=== PATIENT | male | born 1930 | race Caucasian/White ===

== ENCOUNTER 2017-06-09 19:23 | Emergency (ER) | payer MEDICARE, MEDICAID ==
[~2017-06-09] VITALS: Ht 170.2 cm; Wt 77.2 kg
[~2017-06-09 19:23] MED LIST: ASP325T PO; ATOR20TA66 PO; Amlodipine Besylate PO; Atorvastatin Calcium PO; LISI1TAB10 PO; LISI1TAB78 PO; LISI20TA PO; LOVA20TA2 PO; MTF500T PO; MTP50T PO; Naproxen PO; PANT40TA2 PO; PRED5TAB PO; RANI300T4 PO; RNT150T PO
--- OUTSIDE RECORDS SUMMARY | 2017-06-09 19:28 | XMS REPORT ---
Author Author GREGORIA DIALLO Organization [employer] Address Unknown Phone Unavailable Care Team Providers Care Windshield Installer Name Role Phone GREGORIA DIALLO CP Unavailable Allergies No Known Allergies Problems Problem Type Condition Code Onset Dates Condition Status Problem Vascular dementia F01.50 Active Problem Hypertension I10 Active Problem Type 2 diabetes mellitus without complication, without long-term current use of insulin E11.9 Active Problem Arthritis M19.90 Active Medications No Known Medications Results No Known Results Summary Purpose [employer] Submission
--- OUTSIDE RECORDS SUMMARY | 2017-06-09 19:29 | XMS REPORT ---
Author Author GREGORIA DIALLO Organization [employer] Address Unknown Phone Unavailable Care Team Providers Care Housing Liaison Name Role Phone GREGORIA DIALLO CP Unavailable Allergies No Known Allergies Problems Problem Type Condition Code Onset Dates Condition Status Problem Hypertension I10 Active Problem Arthritis M19.90 Active Problem Vascular dementia F01.50 Active Assessment Arthritis M19.90 Active Assessment Vascular dementia F01.50 Active Assessment Hypertension I10 Active Medications No Known Medications Procedures Procedure Coding System Code Date DOMICIL/R-HOME VISIT EST PAT CPT-4 58761 Oct 13, 2015 Results No Known Results Summary Purpose [employer] Submission
--- OUTSIDE RECORDS SUMMARY | 2017-06-09 19:29 | XMS REPORT ---
Author Author GREGORIA DIALLO [facility] [employer] Address Unknown Phone Unavailable Care Team Providers Care Mechanical Ordnance Assembler Name Role Phone GREGORIA DIALLO Unavailable Allergies No Known Allergies Problems Problem Type Condition Code Onset Dates Condition Status Problem Vascular dementia F01.50 Active Problem Hypertension I10 Active Problem Type 2 diabetes mellitus without complication, without long-term current use of insulin E11.9 Active Problem Arthritis M19.90 Active Medications No Known Medications Results No Known Results Summary Purpose [employer] Submission
--- OUTSIDE RECORDS SUMMARY | 2017-06-09 19:29 | XMS REPORT ---
Author Author GREGORIA DIALLO Organization [employer] Address Unknown Phone Unavailable Care Team Providers Care Print Line Tailer Name Role Phone GREGORIA DIALLO CP Unavailable Allergies No Known Allergies Problems Problem Type Condition Code Onset Dates Condition Status Problem Unspecified hemorrhoids without mention of complication 455.6 Active Problem Unspecified local infection of skin and subcutaneous tissue 686.9 Active Problem Pain in thoracic spine 724.1 Active Problem Vascular dementia, uncomplicated 290.40 Active Problem Loss of weight 783.21 Active Problem Benign essential hypertension 401.1 Active Problem Abnormality of gait 781.2 Active Problem Dyspepsia and other specified disorders of function of stomach 536.8 Active Problem Chest pain, unspecified 786.50 Active Problem Cervicalgia 723.1 Active Problem Actinic keratosis 702.0 Active Problem Lumbago 724.2 Active Problem Elbow, forearm, and wrist, abrasion or friction burn, without mention of infection 913.0 Active Problem 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
[2017-06-09] MEDS ORDERED: NS IV 500 ML 500 ML IV ONE (19:32)
--- NOTE | 2017-06-09 19:32 | ED Chest Pain ---
General Chief Complaint: Chest Pain Stated Complaint: CHEST PAIN Source: patient, EMS Exam Limitations: clinical condition (dementia) History of Present Illness Time seen by provider: 19:29 Initial Comments Patient comes from the [facility] with complaint of chest pain on deep inspiration according to the CARE TRANSITIONS NURSE who examined him. They called EMS and EMS was on another call and it took approximately 30 minutes to get to him. By the time EMS saw him he was having no chest pain shortness of breath nausea diarrhea diaphoresis numbness or weakness. They gave him aspirin got a normal looking 12-lead brought him here. Patient's unable to give much medical history other than he has no prior coronary history but he does have blood pressure problems. He does not smoke however he occasionally has a drink. Patient is not sure what he was doing at the time that he started having the pain. He's had no cough fevers chills or rash. He is a baseline of dementia Allergies and Home Medications Allergies Coded Allergies: No Known Drug Allergies (Unverified , 06/01/14) Home Medications Aspirin 325 Mg Tab, 325 MG PO DAILY for 30 Days, Ref 0 Prescribed by: DONALD YUSUF on 06/10/14 1123 Buspirone HCl 5 Mg Tablet, #60 (Reported) Famotidine 20 Mg Tablet, #30 (Reported) Lisinopril/Hydrochlorothiazide 1 Tab Tablet, 1 TAB PO DAILY, (Reported) Metformin Hcl 500 Mg Tablet, 500 MG PO BID WITH MEALS, (Reported) Pantoprazole Sodium 40 Mg Tablet.dr, 40 MG PO DAILY, #14 Prescribed by: AYDEN ABDULLAHI on 07/27/16 1312 Ranitidine Hcl 300 Mg Tablet, 300 MG PO HS, (Reported) the patient takes 2 150 mg tabs at HS Tamsulosin HCl 0.4 Mg Cap.er.24h, #30 (Reported) [Amlodipine Besylate] 10 MG TABLET, 10 MG PO DAILY, #30 Prescribed by: DONALD YUSUF on 06/10/14 1123 Review of Systems Constitutional: No chills, No diaphoresis EENTM: No Blurred Vision, No Double Vision Respiratory: Denies Cough, Denies Shortness of Air, Denies SOA With Exertion, Denies SOA at Rest Cardiovascular: See HPI, Denies Chest Pain, Denies Lightheadedness Gastrointestinal: Denies Abdominal Pain, Denies Diarrhea, Denies Nausea Genitourinary: Denies Burning, Denies Discharge Musculoskeletal: No back pain, No joint pain Skin: No pruritus, No rash Psychiatric/Neurological: Denies Headache, Denies Numbness, Denies Paresthesia Past Suuczid-Ehirtu-Ubnien Hx Patient Social History Alcohol Use: Occasionally Uses Recreational Drug Use: No Smoking Status: Never a Smoker Recent Hopitalizations: No Surgeries HX Surgeries: Yes (NECK) Surgeries: Appendectomy Respiratory Hx Respiratory Disorders: No Cardiovascular Hx Cardiac Disorders: Yes (Bradycardia) Cardiac Disorders: High Cholesterol, Hypertension Neurological Hx Neurological Disorders: Yes (CA s/p resection) Neurological Disorders: Dementia Reproductive System Hx Reproductive Disorders: No Genitourinary Hx Genitourinary Disorders: Yes Genitourinary Disorders: Prostate Problems Gastrointestinal Hx Gastrointestinal Disorders: Yes Gastrointestinal Disorders: Gastroesophageal Reflux Musculoskeletal Hx Musculoskeletal Disorders: No Endocrine Hx Endocrine Disorders: Yes Endocrine Disorders: Diabetes, Non-Insulin dep HEENT HX ENT Disorders: No Cancer Hx Cancer: Yes Cancer: Prostate Psychosocial Hx Psychiatric Problems: No Integumentary HX Skin/Integumentary Disorder: No Blood Transfusions Hx Blood Disorders: No Family Medical History Significant Family History: No Pertinent Family Hx Family Medial History: Patient reports no known family medical history. Physical Exam Vital Signs Vital Sign - Last 12Hours 06/09/17 06/09/17 19:30 19:34 Temp 98.4 Pulse 54 Resp 14 B/P (MAP) 169/89 Pulse Ox 99 O2 Delivery Nasal Cannula O2 Flow Rate 2.00 Capillary Refill : General Appearance: No Apparent Distress, WD/WN HEENT: PERRL/EOMI, Pharynx Normal Neck: Full Range of Motion, Supple Respiratory: Chest Non Tender, Lungs Clear, Normal Breath Sounds Cardiovascular: Regular Rate, Rhythm, No Edema, No Murmur, Normal Peripheral Pulses Gastrointestinal: Normal Bowel Sounds, Non Tender, Soft Neurologic/Psychiatric: Alert, Other (oriented to self and location but not time) Skin: Normal Color, Warm/Dry Lymphatic: No Adenopathy Progress/Results/Core Measures Results/Orders Lab Results Laboratory Tests Test 06/09/17 19:25 06/09/17 20:49 06/09/17 21:35 Range/Units White Blood Count 6.3 4.3-11.0 10^3/uL Red Blood Count 4.42 4.35-5.85 10^6/uL Hemoglobin 13.4 13.3-17.7 G/DL Hematocrit 39 L 40-54 % Mean Corpuscular Volume 87 80-99 FL Mean Corpuscular Hemoglobin 30 25-34 PG Mean Corpuscular Hemoglobin Concent 35 32-36 G/DL Red Cell Distribution Width 13.4 10.0-14.5 % Platelet Count 151 130-400 10^3/uL Mean Platelet Volume 9.9 7.4-10.4 FL Neutrophils (%) (Auto) 50 42-75 % Lymphocytes (%) (Auto) 32 12-44 % Monocytes (%) (Auto) 13 H 0-12 % Eosinophils (%) (Auto) 4 0-10 % Basophils (%) (Auto) 0 0-10 % Neutrophils # (Auto) 3.2 1.8-7.8 X 10^3 Lymphocytes # (Auto) 2.0 1.0-4.0 X 10^3 Monocytes # (Auto) 0.8 0.0-1.0 X 10^3 Eosinophils # (Auto) 0.2 0.0-0.3 10^3/uL Basophils # (Auto) 0.0 0.0-0.1 10^3/uL Prothrombin Time 12.4 12.2-14.7 SEC INR Comment 1.0 0.8-1.4 Activated Partial Thromboplast Time 25 24-35 SEC Sodium Level 134 L 135-145 MMOL/L Potassium Level 3.7 3.6-5.0 MMOL/L Chloride Level 98 98-107 MMOL/L Carbon Dioxide Level 25 21-32 MMOL/L Anion Gap 11 5-14 MMOL/L Blood Urea Nitrogen 16 7-18 MG/DL Creatinine 0.88 0.60-1.30 MG/DL Estimat Glomerular Filtration Rate > 60 BUN/Creatinine Ratio 18 Glucose Level 135 H 70-105 MG/DL Calcium Level 9.5 8.5-10.1 MG/DL Magnesium Level 1.8 1.8-2.4 MG/DL Total Bilirubin 0.3 0.1-1.0 MG/DL Aspartate Amino Transf (AST/SGOT) 18 5-34 U/L Alanine Aminotransferase (ALT/SGPT) 21 0-55 U/L Alkaline Phosphatase 66 40-136 U/L Myoglobin 43.0 10.0-92.0 NG/ML Troponin I < 0.30 < 0.30 <0.30 NG/ML B-Type Natriuretic Peptide 43.7 <100.0 PG/ML Total Protein 7.1 6.4-8.2 GM/DL Albumin 4.0 3.2-4.5 GM/DL Urine Color YELLOW Urine Clarity CLEAR Urine pH 6.5 5-9 Urine Specific [place] 1.015 L 1.016-1.022 Urine Protein NEGATIVE NEGATIVE Urine Glucose (UA) NEGATIVE NEGATIVE Urine Ketones NEGATIVE NEGATIVE Urine Nitrite NEGATIVE NEGATIVE Urine Bilirubin NEGATIVE NEGATIVE Urine Urobilinogen NORMAL NORMAL MG/DL Urine Leukocyte Esterase NEGATIVE NEGATIVE Urine RBC (Auto) 2+ H NEGATIVE Urine RBC 2-5 H /HPF Urine WBC NONE /HPF Urine Crystals NONE /LPF Urine Bacteria NONE /HPF Urine Casts NONE /LPF Urine Mucus NEGATIVE /LPF Urine Culture Indicated NO My Orders Orders - ESA RHODES Cbc With Automated Diff (06/09/17 19:32) Magnesium (06/09/17 19:32) Ekg Tracing (06/09/17:32) Cardiac Profile 1 (06/09/17:32) Comprehensive Metabolic Panel (06/09/17 19:32) Myoglobin Serum (06/09/17 19:32) Protime With Inr (06/09/17:32) Partial Thromboplastin Time (06/09/17:32) O2 (06/09/17:32) Monitor-Rhythm Ecg Trace Only (06/09/17 19:32) Saline Lock/Iv-Start (06/09/17 19:32) BNP (06/09/17 19:32) Ua Culture If Indicated (06/09/17 19:32) Chest Pa/Lat (2 View) (06/09/17 19:32) Saline Lock/Iv-Start (06/09/17 19:32) Ns Iv 500 Ml (Sodium Chloride 0.9%) (06/09/17 19:32) Troponin I (06/09/17 21:24) Medications Given in ED Current Medications Medications Dose Ordered Sig/Ana Rosa Route Start Time Stop Time Status Last Admin Dose Admin Sodium Chloride 500 ml @ 0 mls/hr Q0M ONCE IV 06/09/17 19:32 06/09/17 19:35 DC 06/09/17 19:42 0 MLS/HR Vital Signs/I&O Vital Sign - Last 12Hours 06/09/17 06/09/17 06/09/17 06/09/17 19:30 19:34 19:34 23:01 Temp 98.4 98.4 Pulse 54 48 Resp 14 14 B/P (MAP) 169/89 Pulse Ox 99 99 94 O2 Delivery Nasal Cannula Nasal Cannula Nasal Cannula Room Air O2 Flow Rate 2.00 2.0 2.0 2.0 Intake and Output 06/10/17 00:00 Intake Total 500 ml Balance 500 ml Progress Note : Time: 21:23 Progress Note Patient does have dementia but does not have any acute complaints at this time. His chest pain appears to resolve and does not an acute STEMI or instantly. We will go ahead and repeat a delta two-hour troponin now and if it is normal we' ll allow him to go home to follow up tomorrow with his PCP. ECG Initial ECG Impression Date: Jun 09, 2017 Initial ECG Impression Time: 19:27 Initial ECG Rate: 55 Initial ECG Rhythm: S.Jason Initial ECG Intervals: Normal Initial ECG Impression: Nonspecific Changes Initial ECG Comparisson: No Previous ECG Available Comment No ST-T wave elevation or depression. Diagnostic Imaging Diagonstic Imaging: Xray Plain Films/CT/US/NM/MRI: chest Comments VIA [facility]. [place], [place] NAME: PETTY MARCIAL [facility] REC#: [id number] PT STATUS: REG ER : 1930 PHYSICIAN: ESA RHODES MD ADMIT DATE: 06/09/17/ER Draft Date of Exam:06/09/17 CHEST PA/LAT (2 VIEW) INDICATION: Chest pain COMPARISON: 07/27/2016 FINDINGS: Frontal and lateral views of the chest demonstrate normal heart size and pulmonary vascularity. The lungs are clear. There are no signs of infiltrate, pleural effusions or pneumothoraces. The visualized osseous structures show no acute abnormalities. There is aortic atherosclerosis. IMPRESSION: 1. No acute process. No signs of infiltrates, effusions or pneumothoraces. Dictated on workstation # [id number] Dict: 06/09/172058 Trans: 06/09/172101 ARCENIO [id number] Interpreted by: OMAR BALES Electronically signed by: Reviewed: Reviewed by Me Departure Impression Impression: Primary Impression: Chest pain Qualified Codes: R07.89 - Other chest pain Disposition: 01 HOME, SELF-CARE Condition: Stable Departure-Patient Inst. Decision time for Depature: 22:51 Referrals: GREGORIA DIALLO MD (PCP/Family) Primary Care Physician Patient Instructions: Chest Pain That Is Not Caused by the Heart (DC) Add. Discharge Instructions: Tomorrow morning call your physician's office at [phone] and get an appointment within the next week to be seen in follow-up for your chest pain workup outpatient. If you're having any new or worsening symptoms such as repeat chest pain nausea vomiting fevers chills or numbness or weakness she should return to the ER. All discharge instructions reviewed with patient and/or family. Voiced understanding. Copy Copies To 1: GREGORIA DIALLO MD, TITUS J Jun 09, 2017 19:32
[2017-06-09] MEDS ORDERED: BUSP5TAB59 (19:33)
[2017-06-09] MEDS ORDERED: TAMS0.4C2 (19:33)
[2017-06-09] MEDS ORDERED: FAMO20TA5 (19:33)
[2017-06-09 19:43] LABS: BASOPHILS % (AUTO) 0 % (0-10); EOSINOPHILS # (AUTO) 0.2 10^3/uL (0.0-0.3); EOSINOPHILS % (AUTO) 4 % (0-10); LYMPHOCYTES % (AUTO) 32 % (12-44); MEAN CORPUSCULAR HEMOGLOBIN 30 PG (25-34); MEAN CORPUSCULAR HGB CONC 35 G/DL (32-36); MEAN CORPUSCULAR VOLUME 87 FL (80-99); MEAN PLATELET VOLUME 9.9 FL (7.4-10.4); MONOCYTES # (AUTO) 0.8 X 10^3 (0.0-1.0); MONOCYTES % (AUTO) 13 % (0-12); NEUTROPHILS # (AUTO) 3.2 X 10^3 (1.8-7.8); NEUTROPHILS % (AUTO) 50 % (42-75); PLATELET COUNT 151 10^3/uL (130-400); RED BLOOD COUNT 4.42 10^6/uL (4.35-5.85); RED CELL DISTRIBUTION WIDTH 13.4 % (10.0-14.5); WHITE BLOOD COUNT 6.3 10^3/uL (4.3-11.0)
[2017-06-09 19:53] LABS: PROTHROMBIN TIME PATIENT 12.4 SEC (12.2-14.7)
[2017-06-09 20:10] LABS: ALANINE AMINOTRANSFERASE 21 U/L (0-55); ANION GAP 11 MMOL/L (5-14); ASPARTATE AMINO TRANSFERASE 18 U/L (5-34); BILIRUBIN,TOTAL 0.3 MG/DL (0.1-1.0); BLOOD UREA NITROGEN 16 MG/DL (7-18); BUN/CREATININE RATIO 18; CALCIUM 9.5 MG/DL (8.5-10.1); CARBON DIOXIDE 25 MMOL/L (21-32); CHLORIDE 98 MMOL/L (98-107); CREATININE SERUM 0.88 MG/DL (0.60-1.30); GFR ESTIMATED > 60; GLUCOSE 135 MG/DL (70-105); MAGNESIUM 1.8 MG/DL (1.8-2.4); POTASSIUM 3.7 MMOL/L (3.6-5.0); SODIUM 134 MMOL/L (135-145); TOTAL PROTEIN 7.1 GM/DL (6.4-8.2)
[2017-06-09 21:02] LABS: BILIRUBIN,URINE NEGATIVE (NEGATIVE); KETONES,URINE NEGATIVE (NEGATIVE); LEUKOCYTE ESTERASE ,URINE NEGATIVE (NEGATIVE); NITRITE,URINE NEGATIVE (NEGATIVE); PH,URINE 6.5 (5-9); PROTEIN,URINE NEGATIVE (NEGATIVE); UROBILINOGEN,URINE NORMAL (NORMAL)
--- NOTE | 2017-06-09 21:02 | Diagnostic Imaging Report ---
INDICATION: Chest pain COMPARISON: 07/27/2016 FINDINGS: Frontal and lateral views of the chest demonstrate normal heart size and pulmonary vascularity. The lungs are clear. There are no signs of infiltrate, pleural effusions or pneumothoraces. The visualized osseous structures show no acute abnormalities. There is aortic atherosclerosis. IMPRESSION: 1. No acute process. No signs of infiltrates, effusions or pneumothoraces. Dictated by: Dictated on workstation # [id number]
[2017-06-09 23:01] VITALS: BP 180/67
== END 2017-06-09 22:55 | disposition home or self-care (01) ==
LOC: EDUNIT# 19:23 → ER 19:24
DX: R07.1 Chest pain on breathing (principal); E78.00 Pure hypercholesterolemia, unspecified; I10 Essential (primary) hypertension; F03.90 Unspecified dementia, unspecified severity, without behavioral disturbance, psychotic disturbance, mood disturbance, and anxiety; K21.9 Gastro-esophageal reflux disease without esophagitis; E11.9 Type 2 diabetes mellitus without complications; Z85.46 Personal history of malignant neoplasm of prostate; Z79.82 Long term (current) use of aspirin; Z79.84 Long term (current) use of oral hypoglycemic drugs; Z90.49 Acquired absence of other specified parts of digestive tract
CPT/HCPCS: 36415; 71020; 80053; 81000; 83735; 83874; 83880; 84484; 85025; 85610; 85730; 93005; 93041; 96360

== ENCOUNTER 2018-02-11 14:17 | Outpatient (CLI) | payer MEDICARE, MEDICAID ==
[~2018-02-11] VITALS: Ht 170.2 cm; Wt 72.7 kg
[~2018-02-11 14:17] MED LIST changes: +BUSP5TAB59; +FAMO20TA5; +TAMS0.4C2
[2018-02-11 14:57] LABS: BASOPHILS % (AUTO) 1 % (0-10); EOSINOPHILS # (AUTO) 0.2 10^3/uL (0.0-0.3); EOSINOPHILS % (AUTO) 3 % (0-10); HEMATOCRIT 32 % (40-54); HEMOGLOBIN 11.3 G/DL (13.3-17.7); LYMPHOCYTES # (AUTO) 1.3 X 10^3 (1.0-4.0); LYMPHOCYTES % (AUTO) 18 % (12-44); MEAN CORPUSCULAR HEMOGLOBIN 32 PG (25-34); MEAN CORPUSCULAR HGB CONC 35 G/DL (32-36); MEAN CORPUSCULAR VOLUME 91 FL (80-99); MONOCYTES # (AUTO) 0.9 X 10^3 (0.0-1.0); MONOCYTES % (AUTO) 12 % (0-12); NEUTROPHILS # (AUTO) 4.7 X 10^3 (1.8-7.8); NEUTROPHILS % (AUTO) 65 % (42-75); PLATELET COUNT 218 10^3/uL (130-400); RED BLOOD COUNT 3.54 10^6/uL (4.35-5.85); RED CELL DISTRIBUTION WIDTH 12.6 % (10.0-14.5); WHITE BLOOD COUNT 7.2 10^3/uL (4.3-11.0)
[2018-02-11] MEDS ORDERED: ESCI10TA PO (14:59)
[2018-02-11] MEDS ORDERED: ACET325T49 PO (14:59)
[2018-02-11] MEDS ORDERED: TAMS0.4C98 PO (14:59)
[2018-02-11] MEDS ORDERED: MELA10TA2 PO (14:59)
[2018-02-11] MEDS ORDERED: FAMO-119 PO (14:59)
[2018-02-11] MEDS ORDERED: DEXT1DRO7 OP (14:59)
[2018-02-11] MEDS ORDERED: BUSP10TA95 PO (14:59)
[2018-02-11] MEDS ORDERED: LISI1TAB10 PO (14:59)
[2018-02-11] MEDS ORDERED: AMLO5TAB2 PO (14:59)
[2018-02-11] MEDS ORDERED: ACID1TAB PO (14:59)
[2018-02-11] MEDS ORDERED: NAPR-1071 PO (14:59)
[2018-02-11 15:16] LABS: CALCIUM 9.6 MG/DL (8.5-10.1); CREATININE SERUM 1.38 MG/DL (0.60-1.30); POTASSIUM 3.3 MMOL/L (3.6-5.0)
== END 2018-02-11 15:30 | disposition home or self-care (01) ==
LOC: PREOP 14:17
PROVIDERS: ATTEND Otolaryngology Otolaryngology/Facial Plastic Surgery
DX: Z01.812 Encounter for preprocedural laboratory examination (principal); Z11.2 Encounter for screening for other bacterial diseases; L98.9 Disorder of the skin and subcutaneous tissue, unspecified
CPT/HCPCS: 36415; 80048; 85025; 87081

== ENCOUNTER 2018-02-14 07:59 | Day surgery (SDC) | payer MEDICARE, MEDICAID ==
[~2018-02-14] VITALS: Ht 170.2 cm; Wt 72.7 kg
[~2018-02-14 07:59] MED LIST changes: +ACET325T49 PO; +ACID1TAB PO; +AMLO5TAB2 PO; +BUSP10TA95 PO; +DEXT1DRO7 OP; +ESCI10TA PO; +FAMO-119 PO; +MELA10TA2 PO; +NAPR-1071 PO; +TAMS0.4C98 PO
--- OUTSIDE RECORDS SUMMARY | 2018-02-14 08:03 | XMS REPORT ---
Author Author MAKEDA SANCHES [facility] Address [address] [place] [address] Care Team Providers Care [employer] Assistant Manager Name Role Phone MAKEDA SANCHES Unavailable PROBLEMS Type Condition ICD9-CM Code ZTU31-QH Code Onset Dates Condition Status SNOMED Code Problem Benign prostatic hyperplasia with lower urinary tract symptoms, unspecified morphology N40.1 Active 019007043 Problem Pure hypercholesterolemia E78.00 Active 775615003 Problem Gastroesophageal reflux disease, esophagitis presence not specified K21.9 Active 518105845 Problem Basal cell carcinoma C44.91 Active 858547217 Problem Arthritis M19.90 Active 6197199 Problem Vascular dementia F01.50 Active 728389719 Problem Type 2 diabetes mellitus without complication, without long-term current use of insulin E11.9 Active 318023378 Problem Hypertension I10 Active 90634653 ALLERGIES No Information SOCIAL HISTORY Never Assessed PLAN OF CARE VITAL SIGNS MEDICATIONS Unknown Medications RESULTS No Results PROCEDURES No Known procedures IMMUNIZATIONS No Known Immunizations MEDICAL (GENERAL) HISTORY Type Description Date Medical History hypertension Surgical History states multiple but cant tell me what
--- OUTSIDE RECORDS SUMMARY | 2018-02-14 08:03 | XMS REPORT ---
Author Author MAKEDA SANCHES [facility] Address [address] [place] [address] Care Team Providers Care Firearms Sales Associate Name Role Phone MAKEDA SANCHES Unavailable PROBLEMS Type Condition ICD9-CM Code VSF47-UK Code Onset Dates Condition Status SNOMED Code Problem Vascular dementia F01.50 Active 269453899 Problem Gastroesophageal reflux disease, esophagitis presence not specified K21.9 Active 347046682 Problem Type 2 diabetes mellitus without complication, without long-term current use of insulin E11.9 Active 787711150 Problem Pure hypercholesterolemia E78.00 Active 277850889 Problem Benign prostatic hyperplasia with lower urinary tract symptoms, unspecified morphology N40.1 Active 855027604 Problem Arthritis M19.90 Active 0121685 Problem Hypertension I10 Active 50541846 Problem Dementia in other diseases classified elsewhere without behavioral disturbance F02.80 Active 241823092 Problem Major depressive disorder, single episode, unspecified F32.9 Active 35837725 Problem Unsteady gait R26.81 Active 14013580 Problem Basal cell carcinoma C44.91 Active 336858437 Problem 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 [address] [id number][place] [id number] Oct, [facility] [address] [place] [id number] Oct, Dry skin L85.3 and History of basal cell carcinoma Z85.828 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 [address] [id number][place] [id number] Jul, [facility] [address] [place] [address] Jul, Vascular dementia F01.50 [facility] [address] [id number][place] [id number] Jun, [facility] [address] [place] [address] May, Other chest pain R07.[address] [facility] [address] [place] [address] Mar, Vascular dementia F01.50 [facility] [address] [place] [address] Dec, Type 2 diabetes mellitus without complication, without long-term current use of insulin E11.9 and Vascular dementia F01.50 [facility] [id number] [place] [address] Nov, [facility] [address] [place] [address] Sep, Vascular dementia F01.50 ; Gastroesophageal reflux disease, esophagitis presence not specified K21.9 and Basal cell carcinoma C44.91 [facility] [id number] [place] [address] Aug, [facility] [address] [place] [address] Jul, Type 2 diabetes mellitus without complication, without long-term current use of insulin E11.9 and Hypertension I10 [facility] [id number] [place] [address] May, [facility] [address] [place] [address] May, Type 2 diabetes mellitus without complication, without long-term current use of insulin E11.9 ; Hypertension I10 and Vascular dementia F01.50 [facility] [address] [id number], [place] [address] Apr, [facility] [id number] [place] [address] February, Hypertension I10 and Arthritis M19.90 [facility] [id number] [place] [address] Dec, Hypertension I10 [facility] [id number] [place] [address] Sep, Vascular dementia F01.50 ; Hypertension I10 and Arthritis M19.90 [facility] [address], [place] [address] 09 Jul, 2015 [facility] [id number] [place] [address] 15 Jun, 2015 Impacted cerumen of both ears 380.4 ; Benign essential hypertension 401.1 and Diabetes mellitus without mention of complication, type II or unspecified type, uncontrolled 250.02 [facility] [id number] [place] [address] 17 May, 2015 [facility] [id number] [place] [address] Jan, [facility] [id number] [place] [address] Jan, [facility] [id number] [place] [address] Dec, [facility] [id number] [place] [address]- [address] 19 Dec, 2014 [facility] [address], [place] [address] 16 Dec, 2014 [facility] [address], [place] [address] 16 Dec, 2014 [facility] [address], [place] [address] Dec, [facility] [address], [place] [address] Dec, [facility] [address], [place] [address] Dec, [facility] [address] Dec, [facility] [address], [place] [address] 18 Nov, 2014 [facility] [address] [id number] [place] [address] Nov, [facility] [address] [id number] [place] [address] Nov, [facility] [address] [id number] [place] [address] Sep, [facility] [address] [id number] [place] [address] Sep, [facility] [address] [id number] [place] [address] Aug, [facility] [address] [id number] [place] [address] Aug, [facility] [address] [id number] [place] [address] Aug, [facility] [address] [id number] [place] [address] Aug, [facility] [address] [id number] [place] [address] Jul, [facility] [address] [id number] [place] [address] Jul, [facility] [address] [id number] [place] [address] Jul, [facility] [address] [id number] [place] [address] Jul, [facility] [address] [id number], [place] [address] Jul, [facility] [address] [id number] [place] [address] Jul, [facility] [address] [place] [id number] Jun, [facility] [address] [id number], [place] [address] Jun, [facility] [place] [facility] [address] [id number] [place] [address] May, [facility] [place] [facility] [address] [id number] [place] [address]- 5[address] May, [facility] [place] [facility] [address] [id number] [place] [address]- [address] May, [facility] [place] [facility] [address] [id number] [place] [address]- [address] May, [facility] [place] [facility] [address] [id number] [place] [address]- 0[address] May, [facility] [place] [facility] [address] [id number] [place] [address]- 7[address] May, [facility] [place] [facility] [address] [id number] [place] [address]- 3360 May, [facility] [place] [facility] [address] [id number] [place] [address]- [address] May, [facility] [place] [facility] [address] [id number] [facility] [place] [address] May, [facility] [place] [facility] [address] [id number] [place] [address]- [address] May, [facility] [place] [facility] [address] [id number] [place] [address] May, [facility] [place] [facility] [address] [id number] [place] [address]- 60[address] Apr, [facility] [place] [facility] [address] [id number] [place] [address]- [address] Apr, [facility] [place] [facility] [address] [id number] [place] [address]- 2400 Apr, [facility] [place] [facility] [address] [id number] [place] [address]- 6070 Apr, [facility] [place] [facility] [address] [id number] [place] [address]- 4[address] Apr, [facility] [place] [facility] [address] [id number] [place] [address]- 8879 Apr, [facility] [place] [facility] [address] [id number] [place] [address]- [address] Mar, [facility] [place] [facility] [address] [id number] [place] [address]- 2935 Mar, [facility] [place] [facility] [address] [id number] [place] [address]- 2794 Mar, [facility] [place] [facility] [address] [id number] [place] [address]- 2119 Mar, [facility] [place] [facility] [address] [id number] [place] [address]- 6[address] Jan, [facility] [place] [facility] [address] [id number] [place] [address]- 9481 Jan, [facility] [place] [facility] [address] [id number] [place] [address]- 4605 Jan, [facility] [place] [facility] [address] [id number] [place] [address]- 0106 Jan, [facility] [place] [facility] [address] [id number] [place] [address]- 8893 Jan, [facility] [place] [facility] [address] [id number] [place] [address]- 06[address] Jan, [facility] [place] [facility] [address] [id number] [place] [address]- 0590 Jan, [facility] [place] [facility] [address] [id number] [place] [address]- 7104 Dec, [facility] [place] [facility] [address] [id number] [place] [address]- [address]103 Dec, [facility] [place] [facility] [address] [id number] [place] [address] Dec, [facility] [place] [facility] [address] [id number] [place] [address]- 2658 17 Dec, 2013 [facility] [place] [facility] [address] [id number] [place] [address]- 4283 17 Dec, 2013 [facility] [place] [facility] [address] [id number] [place] [address]- 4366 17 Dec, 2013 [facility] [place] [facility] [address] [id number] [place] [address]- 5856 17 Dec, 2013 [facility] [place] [facility] [address] [id number] [place] [address]- 0132 10 Dec, 2013 [facility] [place] [facility] [address] [id number] [place] [address]- 0869 10 Dec, 2013 [facility] [place] [facility] [address] [id number] [place] [address]- 1326 Oct, [facility] [place] [facility] [address] [id number] [place] [address]- 1757 Oct, [facility] [place] [facility] [address] [id number] [place] [address]- 7542 Oct, [facility] [place] [facility] [address] [id number] [place] [address]- 3009 Oct, [facility] [place] [facility] [address] [id number] [place] [address]- 9236 Aug, [facility] [place] [facility] [address] [id number] [place] [address]- 5923 Aug, [facility] [place] [facility] [address] [id number] [place] [address]- 1476 Jun, [facility] [place] [facility] [address] [id number] [place] [address]- 0031 May, [facility] [place] [facility] [address] [id number] [place] [address]- 7263 May, [facility] [place] [facility] [address] [id number] [place] [address]- 9123 May, [facility] [place] [facility] [address] [id number] [place] [address]- 6753 Apr, [facility] [address] [id number] [place] [address]- 6[address] Apr, [facility] [address] [id number] [place] [address]- 65[address] February, [facility] [address] [id number] [place] [address]- 8938 February, [facility] [address] [id number] [place] [address]- 7805 February, [facility] [address] [id number] [place] [address]- 3978 Jan, [facility] [address] [id number] [place] [address]- 2405 Jan, [facility] [address] [id number] [place] [address]- 6272 Jan, [facility] [address] [id number] [place] [address]- 9934 Jan, [facility] [address] [id number] [place] [address]- 0566 Jun, [facility] [address] [id number] [place] [address]- 1166 February, [facility] [address] [id number] [place] [address]- 9652 February, [facility] [address] [id number] [place] [address]- 7751 Jan, [facility] [address] [id number] [place] [address]- 3702 Jan, [facility] [address] [id number] [place] [address]- 1121 Jan, [facility] [address] [id number] [place] [address]- 2546 Dec, [facility] [address] [facility] [id number] [place] [address]- 2546 Nov, [facility] [address] [facility] [id number] [place] [address]- 2546 Aug, IMMUNIZATIONS No Known Immunizations SOCIAL HISTORY Never Assessed REASON FOR VISIT ER follow up PLAN OF CARE Activity Details Follow Up prn Reason: VITAL SIGNS MEDICATIONS No Known Medications RESULTS No Results PROCEDURES Procedure Date Ordered Result Body Site Stable Visit (10 minutes) Jun 13, 2017 INSTRUCTIONS MEDICATIONS ADMINISTERED No Known Medications MEDICAL (GENERAL) HISTORY Type Description Date Medical History hypertension Medical History vascular dementia Medical History basal cell carcinoma Medical History hypercholesterolemia Medical History BPH Medical History fall risk, unsteady gait Medical History GERD Medical History arthritis Surgical History states multiple but not able to provide more information
--- OUTSIDE RECORDS SUMMARY | 2018-02-14 08:04 | XMS REPORT ---
Author Author MAKEDA SANCHES [facility] Address [address] [place] [address] Care Team Providers Care Software Development Intern Name Role Phone MAKEDA SANCHES Unavailable PROBLEMS Type Condition ICD9-CM Code CJK46-LI Code Onset Dates Condition Status SNOMED Code Problem Vascular dementia F01.50 Active 372481311 Problem Gastroesophageal reflux disease, esophagitis presence not specified K21.9 Active 236025159 Problem Type 2 diabetes mellitus without complication, without long-term current use of insulin E11.9 Active 488614892 Problem Pure hypercholesterolemia E78.00 Active 844773194 Problem Benign prostatic hyperplasia with lower urinary tract symptoms, unspecified morphology N40.1 Active 551958317 Problem Arthritis M19.90 Active 4128544 Problem Hypertension I10 Active 06020670 Problem Dementia in other diseases classified elsewhere without behavioral disturbance F02.80 Active 634020594 Problem Major depressive disorder, single episode, unspecified F32.9 Active 27049610 Problem Unsteady gait R26.81 Active 17593049 Problem Basal cell carcinoma C44.91 Active 368461945 Problem 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 Active 615806858 Problem Frequent falls R29.6 Active 201546045 ALLERGIES No Information ENCOUNTERS Encounter Location Date Diagnosis [facility] [address] [facility] [id number], [place] [address] Nov, 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 ; Dementia in other diseases classified elsewhere without behavioral disturbance F02.80 ; Major depressive disorder, single episode, unspecified F32.9 and Vascular dementia F01.50 [facility] [address] [id number] [id number] Oct, [facility] [address] [facility] [id number] [id number] Oct, 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 ; Dementia in other diseases classified elsewhere without behavioral disturbance F02.80 ; Major depressive disorder, single episode, unspecified F32.9 and Vascular dementia F01.50 [facility] [address] [facility] [id number], [place] [address] Oct, [facility] [address] [id number][place] [id number] Oct, [facility] [address] [place] [id number] Oct, Dry skin L85.3 and History of basal cell carcinoma Z85.828 [facility] [address] [id number] [id number] Oct, [facility] [address] [facility] [id number] [address] Sep, Vascular dementia F01.50 ; 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 ; Dementia in other diseases classified elsewhere without behavioral disturbance F02.80 and Major depressive disorder, single episode, unspecified F32.9 [facility] [address] [facility] [id number] [address] Sep, [facility] [address] [place] [id number] Aug, Encounter for examination for admission to alf Z02.2 ; Vascular dementia F01.50 ; Hypertension I10 ; Type 2 diabetes mellitus without complication, without long-term current use of insulin E11.9 ; Frequent falls R29.6 and Unsteady gait R26.81 [facility] [address] [id number][place] [id number] Jul, [facility] [address] [place] [address] Jul, Vascular dementia F01.50 [facility] [address] [id number][place] [id number] Jun, [facility] [address] [place] [address] May, Other chest pain R07.89 [facility] [address] [place] [address] Mar, Vascular dementia F01.50 [facility] [address] [place] [address] Dec, Type 2 diabetes mellitus without complication, without long-term current use of insulin E11.9 and Vascular dementia F01.50 [facility] [id number] [place] [address] Nov, [facility] [address] [place] [address] Sep, Vascular dementia F01.50 ; Gastroesophageal reflux disease, esophagitis presence not specified K21.9 and Basal cell carcinoma C44.91 [facility] [id number] [place] [address] Aug, [facility] [address] [place] [address] Jul, Type 2 diabetes mellitus without complication, without long-term current use of insulin E11.9 and Hypertension I10 [facility] [id number] [place] [address] May, [facility] [address] [place] [address] May, Type 2 diabetes mellitus without complication, without long-term current use of insulin E11.9 ; Hypertension I10 and Vascular dementia F01.50 [facility] [address] [id number], [place] [address] Apr, [facility] [id number] [place] [address] February, Hypertension I10 and Arthritis M19.90 [facility] [id number] [place] [address] Dec, Hypertension I10 [facility] [id number] [place] [address] Sep, Vascular dementia F01.50 ; Hypertension I10 and Arthritis M19.90 [facility] [address], [place] [address] 09 Jul, 2015 [facility] [id number] [place] [address] 15 Jun, 2015 Impacted cerumen of both ears 380.4 ; Benign essential hypertension 401.1 and Diabetes mellitus without mention of complication, type II or unspecified type, uncontrolled 250.02 [facility] [id number] [place] [address] 17 May, 2015 [facility] [id number] [place] [address] Jan, [facility] [id number] [place] [address] Jan, [facility] [id number] [place] [address] Dec, [facility] [address] [place] [address] 19 Dec, 2014 [facility] [address], [place] [address] 16 Dec, 2014 [facility] [address], [place] [address] 16 Dec, 2014 [facility] [address], [place] [address] Dec, [facility] [address], [place] [address] Dec, [facility] [address], [place] [address] Dec, [facility] [address] Dec, [facility] [address], [place] [address] 18 Nov, 2014 [facility] [address] [facility] [place] [place] [address] Nov, [facility] [address] [id number] [place] [address] Nov, [facility] [address] [id number] [place] [address] Sep, [facility] [address] [id number] [place] [address] Sep, [facility] [address] [id number] [place] [address] Aug, [facility] [address] [id number] [place] [address] Aug, [facility] [address] [id number] [place] [address] Aug, [facility] [address] [id number] [place] [address] Aug, [facility] [address] [id number] [place] [address] Jul, [facility] [address] [id number] [place] [address] Jul, [facility] [address] [id number] [place] [address] Jul, [facility] [address] [id number] [place] [address] Jul, [facility] [address] [id number], [place] [address] Jul, [facility] [address] [id number] [place] [address] Jul, [facility] [address] [place] [id number] Jun, [facility] [address] [id number], [place] [address] Jun, [facility] [place] [facility] [address] [id number] [place] [address] 8[address] May, [facility] [place] [facility] [address] [id number] [place] [address] May, [facility] [place] [facility] [address] [id number] [place] [address] 9[address] May, [facility] [place] [facility] [address] [id number] [place] [address] 8[address] May, [facility] [place] [facility] [address] [id number] [place] [address]- 2587 May, [facility] [place] [facility] [address] [id number] [place] [address] 2924 May, [facility] [place] [facility] [address] [id number] [place] [address]- 74[address] May, [facility] [place] [facility] [address] [id number] [place] [address]- [address] May, [facility] [place] [facility] [address] [id number] [place] [address]- 95[address] May, [facility] [place] [facility] [address] [id number] [place] [address]- 9849 May, [facility] [place] [facility] [address] [id number] [place] [address]- 6277 May, [facility] [place] [facility] [address] [id number] [place] [address]- 7171 Apr, [facility] [place] [facility] [address] [id number] [place] [address]- 2650 Apr, [facility] [place] [facility] [address] [id number] [place] [address]- 0591 Apr, [facility] [place] [facility] [address] [id number] [place] [address]- [address] Apr, [facility] [place] [facility] [address] [id number] [place] [address]- 2816 Apr, [facility] [place] [facility] [address] [id number] [place] [address]- 9836 Apr, [facility] [place] [facility] [address] [id number] [place] [address]- 136[address] Mar, [facility] [place] [facility] [address] [id number] [place] [address]- 0099 Mar, [facility] [place] [facility] [address] [id number] [place] [address]- 9163 Mar, [facility] [place] [facility] [address] [id number] [place] [address]- [address]30 Mar, [facility] [place] [facility] [address] [id number] [place] [address]- 6309 Jan, [facility] [place] [facility] [address] [id number] [place] [address]- 7443 Jan, [facility] [place] [facility] [address] [id number] [place] [address]- 5316 Jan, [facility] [place] [facility] [address] [id number] [place] [address]- 5857 Jan, [facility] [place] [facility] [address] [id number] [place] [address]- 2677 Jan, [facility] [place] [facility] [address] [id number] [place] [address]- 0698 Jan, [facility] [place] [facility] [address] [id number] [place] [address]- 0115 Jan, [facility] [place] [facility] [address] [id number] [place] [address]- 2460 Dec, [facility] [place] [facility] [address] [id number] [place] [address]- 8427 Dec, [facility] [place] [facility] [address] [id number] [place] [address] Dec, [facility] [place] [facility] [address] [id number] [place] [address]- 6479 17 Dec, 2013 [facility] [place] [facility] [address] [id number] [place] [address]- 8499 17 Dec, 2013 [facility] [place] [facility] [address] [id number] [place] [address]- 7006 17 Dec, 2013 [facility] [place] [facility] [address] [id number] [place] [address]- 6126 17 Dec, 2013 [facility] [place] [facility] [address] [id number] [place] [address]- 9983 10 Dec, 2013 [facility] [place] [facility] [address] [id number] [place] [address]- 9021 10 Dec, 2013 [facility] [place] [facility] [address] [id number] [place] [address]- 3639 Oct, [facility] [place] [facility] [address] [id number] [place] [address]- 9023 Oct, [facility] [place] [facility] [address] [id number] [place] [address]- 4759 Oct, [facility] [place] [facility] [address] [id number] [place] [address]- 8224 Oct, [facility] [place] [facility] [address] [id number] [place] [address]- 9107 Aug, [facility] [place] [facility] [address] [id number] [place] [address]- 8146 Aug, [facility] [place] [facility] [address] [id number] [place] [address]- 6264 Jun, [facility] [place] [facility] [address] [id number] [place] [address]- 7854 May, [facility] [place] [facility] [address] [id number] [place] [address]- 6918 May, [facility] [place] [facility] [address] [id number] [place] [address]- 8189 May, [facility] [place] [facility] [address] [id number] [place] [address]- 1720 Apr, [facility] [address] [id number] [place] [address]- 4698 Apr, [facility] [address] [id number] [place] [address]- 1020 February, [facility] [address] [id number] [place] [address]- 3432 February, [facility] [address] [id number] [place] [address]- 1791 February, [facility] [address] [id number] [place] [address]- 1267 Jan, [facility] [address] [id number] [place] [address]- 6994 Jan, [facility] [address] [id number] [place] [address]- 1870 Jan, [facility] [address] [id number] [place] [address]- 4738 Jan, [facility] [address] [id number] [place] [address]- 8550 Jun, [facility] [address] [id number] [place] [address]- 5988 February, [facility] [address] [id number] [place] [address]- 1231 February, [facility] [address] [id number] [place] [address]- 6776 Jan, [facility] [address] [id number] [place] [address]- 6241 Jan, [facility] [address] [id number] [place] [address]- 4025 Jan, [facility] [address] [id number] [place] [address]- 2546 Dec, [facility] [address] [facility] [id number] [place] [address]- 2546 Nov, [facility] [address] [facility] [id number], [place] [address] Aug, IMMUNIZATIONS No Known Immunizations SOCIAL HISTORY Never Assessed REASON FOR VISIT Routine Visit PLAN OF CARE Activity Details Follow Up prn Reason: VITAL SIGNS MEDICATIONS Medication Instructions Dosage Frequency Start Date End Date Duration Status Zantac 300 MG Orally Once a day 1 tablet at bedtime 24h Active Imodium A-D 2 MG Orally every 8 hours as needed 1 tablet Active Flomax 0.4 MG Orally 2 times a day (0800 & 1700) 1 capsule Active Naprosyn 250 MG Orally Once a day as needed for pain 1 tablet Active Pantoprazole Sodium 40 MG TAKE 1 TABLET BY MOUTH 30 MINUTES BEFORE DINNER, STOP THE ZANTAC 30 Active Lisinopril-Hydrochlorothiazide 20-25 MG TAKE ONE TABLET BY MOUTH EVERY DAY 30 Active Amlodipine Besylate 5 MG TAKE 1 TABLET BY MOUTH DAILY 30 Active Aspirin 325 mg Orally Once a day 1 tablet 24h 04 Mar, 2014 Active BusPIRone HCl 5 MG TAKE 1 TABLET BY MOUTH TWICE DAILY 30 Active Melatonin 5 mg Orally Once a day at HS 1 tablet at bedtime as needed with food 30 Active RESULTS No Results PROCEDURES Procedure Date Ordered Result Body Site Stable Visit (10 minutes) April 16, 2017 INSTRUCTIONS MEDICATIONS ADMINISTERED No Known Medications MEDICAL (GENERAL) HISTORY Type Description Date Medical History hypertension Medical History vascular dementia Medical History basal cell carcinoma Medical History hypercholesterolemia Medical History BPH Medical History fall risk, unsteady gait Medical History GERD Medical History arthritis Surgical History states multiple but not able to provide more information
--- OUTSIDE RECORDS SUMMARY | 2018-02-14 08:04 | XMS REPORT ---
Author Author GREGORIA DIALLO [facility] Address [address] [place] [address] Care Team Providers Care Engraver Pantograph Name Role Phone GREGORIA DIALLO Unavailable PROBLEMS Type Condition ICD9-CM Code [id number] Code Onset Dates Condition Status SNOMED Code Problem Benign prostatic hyperplasia with lower urinary tract symptoms, unspecified morphology N40.1 Active 109573355 Problem Pure hypercholesterolemia E78.00 Active 218008783 Problem Gastroesophageal reflux disease, esophagitis presence not specified K21.9 Active 489646511 Problem Basal cell carcinoma C44.91 Active 123794733 Problem Arthritis M19.90 Active 2068850 Problem Vascular dementia F01.50 Active 559451666 Problem Type 2 diabetes mellitus without complication, without long-term current use of insulin E11.9 Active 748214336 Problem Hypertension I10 Active 58067578 ALLERGIES Unknown Allergies SOCIAL HISTORY No smoking Hx information available PLAN OF CARE Activity Details Follow Up 3 Months Reason: VITAL SIGNS MEDICATIONS Unknown Medications RESULTS No Results PROCEDURES Procedure Date Ordered Related Diagnosis Body Site DOMICIL/R-HOME VISIT EST PAT Sep 27, 2016 IMMUNIZATIONS No Known Immunizations
--- OUTSIDE RECORDS SUMMARY | 2018-02-14 08:05 | XMS REPORT ---
Author Author GREGORIA DIALLO [facility] Address [address] [place] [address] Care Team Providers Care Battery Loader Name Role Phone GREGORIA DIALLO Unavailable PROBLEMS Type Condition ICD9-CM Code [id number] Code Onset Dates Condition Status SNOMED Code Problem Benign prostatic hyperplasia with lower urinary tract symptoms, unspecified morphology N40.1 Active 536482686 Problem Pure hypercholesterolemia E78.00 Active 722453770 Problem Gastroesophageal reflux disease, esophagitis presence not specified K21.9 Active 134460739 Problem Basal cell carcinoma C44.91 Active 647297869 Problem Arthritis M19.90 Active 5512413 Problem Vascular dementia F01.50 Active 819019861 Problem Type 2 diabetes mellitus without complication, without long-term current use of insulin E11.9 Active 042005456 Problem Hypertension I10 Active 60773534 ALLERGIES Unknown Allergies SOCIAL HISTORY No smoking Hx information available PLAN OF CARE Activity Details Follow Up 3 Months Reason: VITAL SIGNS MEDICATIONS Unknown Medications RESULTS No Results PROCEDURES Procedure Date Ordered Related Diagnosis Body Site DOMICIL/R-HOME VISIT EST PAT Aug 02, 2016 IMMUNIZATIONS No Known Immunizations
--- OUTSIDE RECORDS SUMMARY | 2018-02-14 08:06 | XMS REPORT | Continuity of Care Document ---
Author Author [facility] Address Unknown Phone Unavailable Allergies Active Description Code Type Severity Reaction Onset Reported/Identified Relationship to Patient Clinical Status Yes No Known Drug Allergies [id number] Drug Allergy Unknown N/A 06/01/2014 Medications There is no data. 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-DEFINED CEREBROVASCULAR DISEASE 05/25/2011 GREGORIA DIALLO MD 401.9 UNSPECIFIED ESSENTIAL HYPERTENSION 05/25/2011 GREGORIA DIALLO MD 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-DEFINED CEREBROVASCULAR DISEASE 05/25/2011 GREGORIA DIALLO MD 401.9 UNSPECIFIED ESSENTIAL HYPERTENSION 05/25/2011 GREGORIA DIALLO MD 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-DEFINED CEREBROVASCULAR DISEASE 05/25/2011 GREGORIA DIALLO MD 401.9 UNSPECIFIED ESSENTIAL HYPERTENSION 05/25/2011 GREGORIA DIALLO MD 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-DEFINED CEREBROVASCULAR DISEASE 05/25/2011 GREGORIA DIALLO MD 401.9 UNSPECIFIED ESSENTIAL HYPERTENSION 05/25/2011 GREGORIA DIALLO MD 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-DEFINED CEREBROVASCULAR DISEASE 05/25/2011 GREGORIA DIALLO MD 401.9 UNSPECIFIED ESSENTIAL HYPERTENSION 05/25/2011 GREGORIA DIALLO MD 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-DEFINED CEREBROVASCULAR DISEASE 05/25/2011 GREGORIA DIALLO MD 401.9 UNSPECIFIED ESSENTIAL HYPERTENSION 05/25/2011 GREGORIA DIALLO MD 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-DEFINED CEREBROVASCULAR DISEASE 05/25/2011 KAYCEE ANAYA DO 401.9 UNSPECIFIED ESSENTIAL HYPERTENSION 05/25/2011 KAYCEE ANAYA DO 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-DEFINED CEREBROVASCULAR DISEASE 05/25/2011 GREGORIA DIALLO MD 401.9 UNSPECIFIED ESSENTIAL HYPERTENSION 05/25/2011 GREGORIA DIALLO MD 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-DEFINED CEREBROVASCULAR DISEASE 06/26/2011 250.00 DIABETES MELLITUS TYPE 2 06/26/2011 250.00 DIABETES MELLITUS TYPE 2 06/26/2011 250.00 DIABETES MELLITUS TYPE 2 06/26/2011 YOEL SANTIAGO, GREGORIA 250.00 DIABETES MELLITUS TYPE 2 06/26/2011 YOEL SANTIAGO, GREGORIA 250.00 DIABETES MELLITUS TYPE 2 06/26/2011 YOEL SANTIAGO, GREGORIA 250.00 DIABETES MELLITUS TYPE 2 06/26/2011 YOEL SANTIAGO, GREGORIA 250.00 DIABETES MELLITUS TYPE 2 06/26/2011 YOEL SANTIAGO, GREGORIA 250.00 DIABETES MELLITUS TYPE 2 06/26/2011 YOEL SANTIAGO, GREGORIA 250.00 DIABETES MELLITUS TYPE 2 06/26/2011 YOEL SANTIAGO, GREGORIA 250.00 DIABETES MELLITUS TYPE 2 06/26/2011 KAYCEE ANAYA DO 250.00 DIABETES MELLITUS TYPE 2 06/26/2011 YOEL SANTIAGO, GREGORIA 250.00 DIABETES MELLITUS TYPE 2 01/28/2012 290.40 VASCULAR DEMENTIA UNCOMPLICATED 01/28/2012 290.40 VASCULAR DEMENTIA UNCOMPLICATED 01/28/2012 290.40 VASCULAR DEMENTIA UNCOMPLICATED 01/28/2012 GREGORIA DIALLO MD 290.40 VASCULAR DEMENTIA UNCOMPLICATED 01/28/2012 GREGORIA DIALLO MD 290.40 VASCULAR DEMENTIA UNCOMPLICATED 01/28/2012 GREGORIA DIALLO MD 290.40 VASCULAR DEMENTIA UNCOMPLICATED 01/28/2012 GREGORIA DIALLO MD 290.40 VASCULAR DEMENTIA UNCOMPLICATED 01/28/2012 GREGORIA DIALLO MD 290.40 VASCULAR DEMENTIA UNCOMPLICATED 01/28/2012 GREGORIA DIALLO MD 290.40 VASCULAR DEMENTIA UNCOMPLICATED 01/28/2012 GREGORIA DIALLO MD 290.40 VASCULAR DEMENTIA UNCOMPLICATED 01/28/2012 KAYCEE ANAYA DO 290.40 VASCULAR DEMENTIA UNCOMPLICATED 01/28/2012 GREGORIA DIALLO MD 290.40 VASCULAR DEMENTIA UNCOMPLICATED 01/30/2013 783.21 LOSS OF WEIGHT 01/30/2013 786.50 UNSPECIFIED CHEST PAIN 01/30/2013 783.21 LOSS OF WEIGHT 01/30/2013 786.50 UNSPECIFIED CHEST PAIN 01/30/2013 783.21 LOSS OF WEIGHT 01/30/2013 786.50 UNSPECIFIED CHEST PAIN 01/30/2013 GREGORIA DIALLO MD 783.21 LOSS OF WEIGHT 01/30/2013 YOEL SANTIAGO, GREGORIA 786.50 UNSPECIFIED CHEST PAIN 01/30/2013 YOEL SANTIAGO, GREGORIA 783.21 LOSS OF WEIGHT 01/30/2013 YOEL SANTIAGO, GREGORIA 786.50 UNSPECIFIED CHEST PAIN 01/30/2013 GREGORIA DIALLO MD 783.21 LOSS OF WEIGHT 01/30/2013 YOEL SANTIAGO, GREGORIA 786.50 UNSPECIFIED CHEST PAIN 01/30/2013 GREGORIA DIALLO MD 783.21 LOSS OF WEIGHT 01/30/2013 YOEL SANTIAGO, GREGORIA 786.50 UNSPECIFIED CHEST PAIN 01/30/2013 GREGORIA DIALLO MD 783.21 LOSS OF WEIGHT 01/30/2013 YOEL SANTIAGO, GREGORIA 786.50 UNSPECIFIED CHEST PAIN 01/30/2013 GREGORIA DIALLO MD 783.21 LOSS OF WEIGHT 01/30/2013 GREGORIA DIALLO MD 786.50 UNSPECIFIED CHEST PAIN 01/30/2013 GREGORIA DIALLO MD 783.21 LOSS OF WEIGHT 01/30/2013 GREGORIA DIALLO MD 786.50 UNSPECIFIED CHEST PAIN 01/30/2013 ANAYA KAYCEE LANGLEY 783.21 LOSS OF WEIGHT 01/30/2013 ANAYA KAYCEE LANGLEY 786.50 UNSPECIFIED CHEST PAIN 01/30/2013 GREGORIA DIALLO MD 783.21 LOSS OF WEIGHT 01/30/2013 GREGORIA DIALLO MD 786.50 UNSPECIFIED CHEST PAIN 01/31/2013 723.1 CERVICALGIA 01/31/2013 781.2 ABNORMALITY OF GAIT 01/31/2013 723.1 CERVICALGIA 01/31/2013 781.2 ABNORMALITY OF GAIT 01/31/2013 723.1 CERVICALGIA 01/31/2013 781.2 ABNORMALITY OF GAIT 01/31/2013 GREGORIA DIALLO MD 723.1 CERVICALGIA 01/31/2013 GREGORIA DIALLO MD 781.2 ABNORMALITY OF GAIT 01/31/2013 GREGORIA DIALLO MD 723.1 CERVICALGIA 01/31/2013 GREGORIA DIALLO MD 781.2 ABNORMALITY OF GAIT 01/31/2013 GREGORIA DIALLO MD 723.1 CERVICALGIA 01/31/2013 HUERTER MD, GREGORIA 781.2 ABNORMALITY OF GAIT 01/31/2013 GREGORIA DIALLO MD 723.1 CERVICALGIA 01/31/2013 GREGORIA DIALLO MD 781.2 ABNORMALITY OF GAIT 01/31/2013 GREGORIA DIALLO MD 723.1 CERVICALGIA 01/31/2013 GREGORIA DIALLO MD 781.2 ABNORMALITY OF GAIT 01/31/2013 GREGORIA DIALLO MD 723.1 CERVICALGIA 01/31/2013 GREGORIA DIALLO MD 781.2 ABNORMALITY OF GAIT 01/31/2013 GREGORIA DIALLO MD 723.1 CERVICALGIA 01/31/2013 GREGORIA DIALLO MD 781.2 ABNORMALITY OF GAIT 01/31/2013 ANAYA DO, KAYCEE K 723.1 CERVICALGIA 01/31/2013 ANAYA DO, KAYCEE K 781.2 ABNORMALITY OF GAIT 01/31/2013 GREGORIA DIALLO MD 723.1 CERVICALGIA 01/31/2013 GREGORIA DIALLO MD 781.2 ABNORMALITY OF GAIT 03/27/2013 913.0 ABRASION OR FRICTION BURN OF ELBOW FOREARM AND WRIST WITHOUT INFECTION 03/27/2013 V58.31 WOUND DRESSING 03/27/2013 913.0 ABRASION OR FRICTION BURN OF ELBOW FOREARM AND WRIST WITHOUT INFECTION 03/27/2013 V58.31 WOUND DRESSING 03/27/2013 GREGORIA DIALLO MD 913.0 ABRASION OR FRICTION BURN OF ELBOW FOREARM AND WRIST WITHOUT INFECTION 03/27/2013 GREGORIA DIALLO MD V58.31 WOUND DRESSING 03/27/2013 GREGORIA DIALLO MD 913.0 ABRASION OR FRICTION BURN OF ELBOW FOREARM AND WRIST WITHOUT INFECTION 03/27/2013 GREGORIA DIALLO MD8.31 WOUND DRESSING 03/27/2013 GREGORIA DIALLO MD 913.0 ABRASION OR FRICTION BURN OF ELBOW FOREARM AND WRIST WITHOUT INFECTION 03/27/2013 GREGORIA DIALLO MD8.31 WOUND DRESSING 03/27/2013 GREGORIA DIALLO MD 913.0 ABRASION OR FRICTION BURN OF ELBOW FOREARM AND WRIST WITHOUT INFECTION 03/27/2013 GREGORIA DIALLO MD V58.31 WOUND DRESSING 03/27/2013 GREGORIA DIALLO MD 913.0 ABRASION OR FRICTION BURN OF ELBOW FOREARM AND WRIST WITHOUT INFECTION 03/27/2013 HUERTER MD, GREGORIA V58.31 WOUND DRESSING 03/27/2013 GREGORIA DIALLO MD 913.0 ABRASION OR FRICTION BURN OF ELBOW FOREARM AND WRIST WITHOUT INFECTION 03/27/2013 YOEL SANTIAGO, GREGORIA V58.31 WOUND DRESSING 03/27/2013 YOEL SANTIAGO, GREGORIA 913.0 ABRASION OR FRICTION BURN OF ELBOW FOREARM AND WRIST WITHOUT INFECTION 03/27/2013 GREGORIA DIALLO MD V58.31 WOUND DRESSING 03/27/2013 ANAYA MARIA LUISA LANGLEYA K 913.0 ABRASION OR FRICTION BURN OF ELBOW FOREARM AND WRIST WITHOUT INFECTION 03/27/2013 ANAYA , KAYCEE K V58.31 WOUND DRESSING 03/27/2013 GREGORIA DIALLO MD 913.0 ABRASION OR FRICTION BURN OF ELBOW FOREARM AND WRIST WITHOUT INFECTION 03/27/2013 GREGORIA DIALLO MD V58.31 WOUND DRESSING 05/21/2013 702.0 ACTINIC KERATOSIS 05/21/2013 YOEL SANTIAGO, GREGORIA 702.0 ACTINIC KERATOSIS 05/21/2013 YOEL SANTIAGO, GREGORIA 702.0 ACTINIC KERATOSIS 05/21/2013 YOEL SANTIAGO, GREGORIA 702.0 ACTINIC KERATOSIS 05/21/2013 YOEL SANTIAGO, GREGORIA 702.0 ACTINIC KERATOSIS 05/21/2013 YOEL SANTIAGO, GREGORIA 702.0 ACTINIC KERATOSIS 05/21/2013 YOEL SANTIAGO, GREGORIA 702.0 ACTINIC KERATOSIS 05/21/2013 YOEL SANTIAGO, GREGORIA 702.0 ACTINIC KERATOSIS 05/21/2013 KAYCEE ANAYA DO K 702.0 ACTINIC KERATOSIS 05/21/2013 GREGORIA DIALLO MD 702.0 ACTINIC KERATOSIS 06/09/2013 GREGORIA DIALLO MD 455.6 UNSPECIFIED HEMORRHOIDS WITHOUT COMPLICATION 06/09/2013 GREGORIA DIALLO MD 724.1 PAIN IN THORACIC SPINE 06/09/2013 GREGORIA DIALLO MD 455.6 UNSPECIFIED HEMORRHOIDS WITHOUT COMPLICATION 06/09/2013 GREGORIA DIALLO MD 724.1 PAIN IN THORACIC SPINE 06/09/2013 GREGORIA DIALLO MD 455.6 UNSPECIFIED HEMORRHOIDS WITHOUT COMPLICATION 06/09/2013 GREGORIA DIALLO MD 724.1 PAIN IN THORACIC SPINE 06/09/2013 GREGORIA DIALLO MD 455.6 UNSPECIFIED HEMORRHOIDS WITHOUT COMPLICATION 06/09/2013 GREGORIA DIALLO MD 724.1 PAIN IN THORACIC SPINE 06/09/2013 GREGORIA DIALLO MD 455.6 UNSPECIFIED HEMORRHOIDS WITHOUT COMPLICATION 06/09/2013 GREGORIA DIALLO MD 724.1 PAIN IN THORACIC SPINE 06/09/2013 GREGORIA DIALLO MD 455.6 UNSPECIFIED HEMORRHOIDS WITHOUT COMPLICATION 06/09/2013 GREGORIA DIALLO MD 724.1 PAIN IN THORACIC SPINE 06/09/2013 GREGORIA DIALLO MD 455.6 UNSPECIFIED HEMORRHOIDS WITHOUT COMPLICATION 06/09/2013 GREGORIA DIALLO MD 724.1 PAIN IN THORACIC SPINE 06/09/2013 KAYCEE ANAYA DO 455.6 UNSPECIFIED HEMORRHOIDS WITHOUT COMPLICATION 06/09/2013 KAYCEE ANAYA DO 724.1 PAIN IN THORACIC SPINE 06/09/2013 GREGORIA DIALLO MD 455.6 UNSPECIFIED HEMORRHOIDS WITHOUT COMPLICATION 06/09/2013 GREGORIA DIALLO MD 724.1 PAIN IN THORACIC SPINE 01/04/2014 GREGORIA DIALLO MD 536.8 DYSPEPSIA AND OTHER SPECIFIED DISORDERS OF FUNCTION OF STOMACH 01/04/2014 GREGORIA DIALLO MD 536.8 DYSPEPSIA AND OTHER SPECIFIED DISORDERS OF FUNCTION OF STOMACH 01/04/2014 GREGORIA DIALLO MD 536.8 DYSPEPSIA AND OTHER SPECIFIED DISORDERS OF FUNCTION OF STOMACH 01/04/2014 GREGORIA DIALLO MD 536.8 DYSPEPSIA AND OTHER SPECIFIED DISORDERS OF FUNCTION OF STOMACH 01/04/2014 GREGORIA DIALLO MD 536.8 DYSPEPSIA AND OTHER SPECIFIED DISORDERS OF FUNCTION OF STOMACH 01/04/2014 KAYCEE ANAYA DO 536.8 DYSPEPSIA AND OTHER SPECIFIED DISORDERS OF FUNCTION OF STOMACH 01/04/2014 GREGORIA DIALLO MD 536.8 DYSPEPSIA AND OTHER SPECIFIED DISORDERS OF FUNCTION OF STOMACH 02/16/2014 GREGORIA DIALLO MD 724.2 LUMBAGO/ LOW BACK PAIN 02/16/2014 GREGORIA DIALLO MD 724.2 LUMBAGO/ LOW BACK PAIN 02/16/2014 GREGORIA DIALLO MD 724.2 LUMBAGO/ LOW BACK PAIN 02/16/2014 GREGORIA DIALLO MD 724.2 LUMBAGO/ LOW BACK PAIN 02/16/2014 KAYCEE ANAYA DO 724.2 LUMBAGO/ LOW BACK PAIN 02/16/2014 GREGORIA DIALLO MD 724.2 LUMBAGO/ LOW BACK PAIN 06/01/2014 LIVIA LANGLEY MARLEN Espinoza Ot 250.00 DIAB TUYET WO COMPL, TYPE II OR UNSPEC TY 06/01/2014 LIVIA LANGLEY MARLEN K Ot 294.20 DEMENTIA, UNSPECIFIED, WITHOUT BEHAVIORA 06/01/2014 LIVIA DO MARLEN Olga Ot 401.9 HYPERTENSION NOS 06/01/2014 LIVIA ROSA LANGLEYA K Ot 786.50 CHEST PAIN NOS 06/10/2014 GREGORIA DIALLO MD Ot 250.00 DIAB TUYET WO COMPL, TYPE II OR UNSPEC TY 06/10/2014 GREGORIA DIALLO MD Ot 290.40 VASCULAR DEMENTIA, UNCOMPLICATED 06/10/2014 GREGORIA DIALLO MD Ot 401.9 HYPERTENSION NOS 06/10/2014 GREGORIA DIALLO MD Ot 426.11 ATRIOVENT BLOCK-1ST DEGR 06/10/2014 GREGORIA DIALLO MD Ot 427.89 CARDIAC DYSRHYTHMIAS NEC 06/10/2014 GREGORIA DIALLO MD Ot 434.91 CEREBRAL ART OCCLUSION NOS W CEREBRAL IN 06/10/2014 GREGORIA DIALLO MD Ot 530.81 ESOPHAGEAL REFLUX 06/10/2014 GREGORIA DIALLO MD Ot 564.00 UNSPEC CONSTIPATION 06/10/2014 GREGORIA DIALLO MD Ot 728.87 MUSCLE WEAKNESS (GENERALIZED) 06/10/2014 GREGORIA DIALLO MD Ot 781.94 FACIAL WEAKNESS 06/10/2014 GREGORIA DIALLO MD Ot 786.52 PAINFUL RESPIRATION 06/10/2014 GREGORIA DIALLO MD Ot 787.20 DYSPHAGIA, UNSPECIFIED 06/10/2014 GREGORIA DIALLO MD Ot 793.11 SOLITARY PULMONARY NODULE 06/17/2014 GREGORIA DIALLO MD 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 06/17/2014 GREGORIA DIALLO MD 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 06/17/2014 KAYCEE ANAYA DO 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 06/17/2014 GREGORIA DIALLO MD 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 06/19/2014 SOLITARIO CEBALLOS MD Ot 719.40 JOINT PAIN-UNSPEC 06/19/2014 LIN MD, SOLITARIO A Ot 729.1 MYALGIA AND MYOSITIS NOS 06/19/2014 LIN SANTIAGO, SOLITARIO A Ot 786.50 CHEST PAIN NOS 06/19/2014 LIN SANTIAGO, SOLITARIO A Ot V58.69 OT MED,LT,CURRENT USE 07/08/2014 GREGORIA DIALLO MD 686.9 UNSPECIFIED LOCAL INFECTION OF SKIN AND SUBCUTANEOUS TISSUE 07/08/2014 ANAYA DO, KAYCEE Espinoza 686.9 UNSPECIFIED LOCAL INFECTION OF SKIN AND SUBCUTANEOUS TISSUE 07/08/2014 GREGORIA DIALLO MD 686.9 UNSPECIFIED LOCAL INFECTION OF SKIN AND SUBCUTANEOUS TISSUE 12/15/2014 GREGORIA DIALLO MD 782.3 EDEMA 02/13/2015 GREGORIA DIALLO MD Ot 250.00 DIAB TUYET WO COMPL, TYPE II OR UNSPEC TY 02/13/2015 GREGORIA DIALLO MD Ot 272.4 HYPERLIPIDEMIA NEC/NOS 02/13/2015 GREGORIA DIALLO MD Ot 294.20 DEMENTIA, UNSPECIFIED, WITHOUT BEHAVIORA 02/13/2015 GREGORIA DIALLO MD Ot 401.9 HYPERTENSION NOS 02/13/2015 GREGORIA DIALLO MD Ot 427.89 CARDIAC DYSRHYTHMIAS NEC 02/13/2015 GREGORIA DIALLO MD Ot 530.81 ESOPHAGEAL REFLUX 02/13/2015 GREGORIA DIALLO MD Ot 786.50 CHEST PAIN NOS 02/13/2015 GREGORIA DIALLO MD Ot 790.5 ABN SERUM ENZY LEVEL NEC 02/13/2015 GREGORIA DIALLO MD Ot V10.46 HX-PROSTATIC MALIGNANCY 02/13/2015 GREGORIA DIALLO MD Ot V12.54 PERSONAL HX OF TIA, CEREBRAL INFARCTION 02/13/2015 GREGORIA DIALLO MD Ot 250.00 02/13/2015 GREGORIA DIALLO MD Ot 272.4 02/13/2015 GREGORIA DIALLO MD Ot 294.20 02/13/2015 GREGORIA DIALLO MD Ot 401.9 02/13/2015 GREGORIA DIALLO MD Ot 427.89 02/13/2015 GREGORIA DIALLO MD Ot 530.81 02/13/2015 GREGORIA DIALLO MD Ot 786.50 02/13/2015 GREGORIA DIALLO MD Ot 790.5 02/13/2015 GREGORIA DIALLO MD, Ot V10.46 02/13/2015 GREGORIA DIALLO MD Dony Ot V12.54 02/07/2016 EZRA IGNACIO MD, Ot E11.9 TYPE 2 DIABETES MELLITUS WITHOUT COMPLIC 02/07/2016 EZRA IGNACIO MD, Ot I44.0 ATRIOVENTRICULAR BLOCK, FIRST DEGREE 02/07/2016 EZRA IGNACIO MD, Ot J32.9 CHRONIC SINUSITIS, UNSPECIFIED 02/07/2016 EZRA IGNACIO MD, Ot K21.9 GASTRO-ESOPHAGEAL REFLUX DISEASE WITHOUT 02/07/2016 EZRA IGNACIO MD, Ot M47.812 SPONDYLOSIS W/O MYELOPATHY OR RADICULOPA 02/07/2016 EZRA IGNACIO MD, Ot R00.1 BRADYCARDIA, UNSPECIFIED 02/07/2016 EZRA IGNACIO MD, Ot S40.012A CONTUSION OF LEFT SHOULDER, INITIAL ENCO 02/07/2016 EZRA IGNACIO MD Ot S70.02XA CONTUSION OF LEFT HIP, INITIAL ENCOUNTER 02/07/2016 EZRA IGNACIO MD, Ot W01.0XXA FALL SAME LEV FROM SLIP/TRIP W/O STRIKE 02/07/2016 EZRA IGNACIO MD, Ot Y92.[address] 02/07/2016 EZRA IGNACIO MD, Ot Y99.8 OTHER EXTERNAL CAUSE STATUS 02/07/2016 EZRA IGNACIO MD, Ot Z79.82 BOX INSPECTOR (CURRENT) USE OF ASPIRIN 02/22/2016 EZRA IGNACIO MD, Ot E11.9 TYPE 2 DIABETES MELLITUS WITHOUT COMPLIC 02/22/2016 EZRA IGNACIO MD, Ot I44.0 ATRIOVENTRICULAR BLOCK, FIRST DEGREE 02/22/2016 EZRA IGNACIO MD, Ot J32.9 CHRONIC SINUSITIS, UNSPECIFIED 02/22/2016 EZRA IGNACIO MD, Ot K21.9 GASTRO-ESOPHAGEAL REFLUX DISEASE WITHOUT 02/22/2016 EZRA IGNACIO MD, Ot M47.812 SPONDYLOSIS W/O MYELOPATHY OR RADICULOPA 02/22/2016 EZRA IGNACIO MD Ot R00.1 BRADYCARDIA, UNSPECIFIED 02/22/2016 EZRA IGNACIO MD, Ot S40.012A CONTUSION OF LEFT SHOULDER, INITIAL ENCO 02/22/2016 EZRA IGNACIO MD Ot S70.02XA CONTUSION OF LEFT HIP, INITIAL ENCOUNTER 02/22/2016 EZRA IGNACIO MD Ot W01.0XXA FALL SAME LEV FROM SLIP/TRIP W/O STRIKE 02/22/2016 EZRA IGNACIO MD Ot Y92.[address] 02/22/2016 EZRA IGNACIO MD Ot Y99.8 OTHER EXTERNAL CAUSE STATUS 02/22/2016 EZRA IGNACIO MD Ot Z79.82 CARE HOME (CURRENT) USE OF ASPIRIN 03/29/2016 LIVIA DO, MARLEN K Ot G89.29 OTHER CHRONIC PAIN 03/29/2016 LIVIA DO, MARLEN K Ot M54.2 CERVICALGIA 03/30/2016 LIVIA DO, MARLEN K Ot G89.29 OTHER CHRONIC PAIN 03/30/2016 LIVIA DO, MARLEN K Ot M54.2 CERVICALGIA 07/27/2016 AYDEN ABDULLAHI APRN Ot E11.9 TYPE 2 DIABETES MELLITUS WITHOUT COMPLIC 07/27/2016 AYDEN ABDULLAHI FRAME OPENER Ot F03.90 UNSPECIFIED DEMENTIA WITHOUT BEHAVIORAL 07/27/2016 AYDEN ABDULLAHI FRAME OPENER Ot I10 ESSENTIAL (PRIMARY) HYPERTENSION 07/27/2016 AYDEN ABDULLAHI APRN Ot K21.9 GASTRO-ESOPHAGEAL REFLUX DISEASE WITHOUT 07/27/2016 AYDEN ABDULLAHI FRAME OPENER Ot R10.84 GENERALIZED ABDOMINAL PAIN 07/27/2016 AYDEN ABDULLAHI APRN Ot Z79.82 CARE HOME (CURRENT) USE OF ASPIRIN 07/27/2016 AYDEN ABDULLAHI FRAME OPENER Ot Z79.899 OTHER BOX INSPECTOR (CURRENT) DRUG THERAPY 07/30/2016 AYDEN ABDULLAHI APRN Ot E11.9 TYPE 2 DIABETES MELLITUS WITHOUT COMPLIC 07/30/2016 AYDEN ABDULLAHI FRAME OPENER Ot F03.90 UNSPECIFIED DEMENTIA WITHOUT BEHAVIORAL 07/30/2016 AYDEN ABDULLAHI FRAME OPENER Ot I10 ESSENTIAL (PRIMARY) HYPERTENSION 07/30/2016 AYDEN ABDULLAHI FRAME OPENER Ot K21.9 GASTRO-ESOPHAGEAL REFLUX DISEASE WITHOUT 07/30/2016 AYDEN ABDULLAHI FRAME OPENER Ot R10.84 GENERALIZED ABDOMINAL PAIN 07/30/2016 AYDEN ABDULLAHI FRAME OPENER Ot Z79.82 CARE HOME (CURRENT) USE OF ASPIRIN 07/30/2016 AYDEN ABDULLAHI FRAME OPENER Ot Z79.899 OTHER CARE HOME (CURRENT) DRUG THERAPY 06/09/2017 ESA RHODES MD Ot E11.9 TYPE 2 DIABETES MELLITUS WITHOUT COMPLIC 06/09/2017 ESA RHODES MD Ot E78.00 PURE HYPERCHOLESTEROLEMIA, UNSPECIFIED 06/09/2017 ESA RHODES MD Ot F03.90 UNSPECIFIED DEMENTIA WITHOUT BEHAVIORAL 06/09/2017 ESA RHODES MD Ot I10 ESSENTIAL (PRIMARY) HYPERTENSION 06/09/2017 ESA RHODES MD Ot K21.9 GASTRO-ESOPHAGEAL REFLUX DISEASE WITHOUT 06/09/2017 ESA RHODES MD Ot R07.1 CHEST PAIN ON BREATHING 06/09/2017 ESA RHODES MD Ot Z79.82 BOX INSPECTOR (CURRENT) USE OF ASPIRIN 06/09/2017 ESA RHODES MD Ot Z79.84 CARE HOME (CURRENT) USE OF ORAL HYPOGLYC 06/09/2017 ESA RHODES MD Ot Z85.46 PERSONAL HISTORY OF MALIGNANT NEOPLASM O 06/09/2017 ESA RHODES MD Ot Z90.49 ACQUIRED ABSENCE OF OTHER SPECIFIED PART 02/12/2018 DANIELLE CONTRERAS MD, Ot L98.9 DISORDER OF THE SKIN AND SUBCUTANEOUS TI 02/12/2018 DANIELLE CONTRERAS MD, Ot Z01.812 ENCOUNTER FOR PREPROCEDURAL LABORATORY E 02/12/2018 DANIELLE CONTRERAS MD, Ot Z11.2 ENCOUNTER FOR SCREENING FOR OTHER BACTER Procedures Code [place] [id number] XRAY CHEST 2 VIEW 01/30/2013 25861 ROUTINE VENIPUNCTURE 01/30/2013 96704 A1C (IN-HOUSE) 01/30/2013 80275 CMP 01/30/2013 [id number] GFR CALC (RESULT ONLY) 01/30/2013 11983 PSA TOTAL 01/30/2013 99162 UA W/ CULTURE IF INDICATED 01/31/2013 97157 ROUTINE VENIPUNCTURE 11/19/2013 86968 A1C (IN-HOUSE) 11/19/2013 [id number] GFR CALC (RESULT ONLY) 11/19/2013 69477 CMP 11/19/2013 77722 XRAY LUMBAR SPINE 2 OR 3 VIEWS 02/16/2014 16194 ROUTINE VENIPUNCTURE 02/16/2014 82261 PSA TOTAL 02/17/2014 Results Test Result Range Complete blood count (CBC) with automated white blood cell (WBC) differential - 07/27/16 11:17 Blood leukocytes automated count (number/volume) 5.4 10*3/uL 4.3-11.0 Blood erythrocytes automated count (number/volume) 4.35 10*6/uL 4.35-5.85 Venous blood hemoglobin measurement (mass/volume) 13.5 g/dL 13.3-17.7 Blood hematocrit (volume fraction) 38 % 40-54 Automated erythrocyte mean corpuscular volume 87 [foz_us] 80-99 Automated erythrocyte mean corpuscular hemoglobin (mass per erythrocyte) 31 pg 25-34 Automated erythrocyte mean corpuscular hemoglobin concentration measurement ( mass/volume) 36 g/dL 32-36 Automated erythrocyte distribution width ratio 12.5 % 10.0-14.5 Automated blood platelet count (count/volume) 135 10*3/uL 130-400 Automated blood platelet mean volume measurement 9.3 [foz_us] 7.4-10.4 Automated blood neutrophils/100 leukocytes 62 % 42-75 Automated blood lymphocytes/100 leukocytes 25 % 12-44 Blood monocytes/100 leukocytes 11 % 0-12 Automated blood eosinophils/100 leukocytes 3 % 0-10 Automated blood basophils/100 leukocytes 0 % 0-10 Blood neutrophils automated count (number/volume) 3.4 10*3 1.8-7.8 Blood lymphocytes automated count (number/volume) 1.3 10*3 1.0-4.0 Blood monocytes automated count (number/volume) 0.6 10*3 0.0-1.0 Automated eosinophil count 0.1 10*3/uL 0.0-0.3 Automated blood basophil count (count/volume) 0.0 10*3/uL 0.0-0.1 PT panel in platelet poor plasma by coagulation assay - 07/27/16 11:17 Prothrombin time (PT) in platelet poor plasma by coagulation assay 12.3 s 12.2-14.7 INR in platelet poor plasma or blood by coagulation assay 0.9 0.8-1.4 Comprehensive metabolic panel - 07/27/16 11:17 Serum or plasma sodium measurement (moles/volume) 134 mmol/L 135-145 Serum or plasma potassium measurement (moles/volume) 3.2 mmol/L 3.6-5.0 Serum or plasma chloride measurement (moles/volume) 100 mmol/L 98-107 Carbon dioxide 23 mmol/L 21-32 Serum or plasma anion gap determination (moles/volume) 11 mmol/L 5-14 Serum or plasma urea nitrogen measurement (mass/volume) 14 mg/dL 7-18 Serum or plasma creatinine measurement (mass/volume) 1.01 mg/dL 0.60-1.30 Serum or plasma urea nitrogen/creatinine mass ratio 14 NRG Serum or plasma creatinine measurement with calculation of estimated glomerular filtration rate > NRG Serum or plasma glucose measurement (mass/volume) 148 mg/dL 70-105 Serum or plasma calcium measurement (mass/volume) 9.4 mg/dL 8.5-10.1 Serum or plasma total bilirubin measurement (mass/volume) 0.4 mg/dL 0.1-1.0 Serum or plasma alkaline phosphatase measurement (enzymatic activity/volume) 48 U/L 40-136 Serum or plasma aspartate aminotransferase measurement (enzymatic activity/ volume) 16 U/L 5-34 Serum or plasma alanine aminotransferase measurement (enzymatic activity/volume ) 14 U/L 0-55 Serum or plasma protein measurement (mass/volume) 6.6 g/dL 6.4-8.2 Serum or plasma albumin measurement (mass/volume) 3.9 g/dL 3.2-4.5 Lipase - 07/27/16 11:17 Lipase 11 U/L 8-78 Serum or plasma troponin i.cardiac measurement (mass/volume) - 07/27/16 11:17 Serum or plasma troponin i.cardiac measurement (mass/volume) < ng/ mL <0.30 Complete urinalysis with reflex to culture - 07/27/16 11:54 Urine color determination YELLOW NRG Urine clarity determination CLEAR NRG Urine pH measurement by test strip 7 5-9 Specific gravity of urine by test strip 1.010 1.016- 1.022 Urine protein assay by test strip, semi-quantitative NEGATIVE NEGATIVE Urine glucose detection by automated test strip NEGATIVE NEGATIVE Erythrocytes detection in urine sediment by light microscopy 1+ NEGATIVE Urine ketones detection by automated test strip NEGATIVE NEGATIVE Urine nitrite detection by test strip NEGATIVE NEGATIVE Urine total bilirubin detection by test strip NEGATIVE NEGATIVE Urine urobilinogen measurement by automated test strip (mass/volume) NORMAL NORMAL Urine leukocyte esterase detection by dipstick NEGATIVE NEGATIVE Automated urine sediment erythrocyte count by microscopy (number/high power field) NONE NRG Automated urine sediment leukocyte count by microscopy (number/high power field ) NONE NRG Bacteria detection in urine sediment by light microscopy NEGATIVE NRG Squamous epithelial cells detection in urine sediment by light microscopy RARE NRG Crystals detection in urine sediment by light microscopy NONE NRG Casts detection in urine sediment by light microscopy NONE NRG Mucus detection in urine sediment by light microscopy NEGATIVE NRG Complete urinalysis with reflex to culture NO NRG Fibrin D-dimer FEU measurement in platelet poor plasma (mass/volume) - 12:11 Fibrin D-dimer FEU measurement in platelet poor plasma (mass/volume) 0.60 ug/mL 0.00-0.49 Complete blood count (CBC) with automated white blood cell (WBC) differential - 06/09/17 19:25 Blood leukocytes automated count (number/volume) 6.3 10*3/uL 4.3-11.0 Blood erythrocytes automated count (number/volume) 4.42 10*6/uL 4.35-5.85 Venous blood hemoglobin measurement (mass/volume) 13.4 g/dL 13.3-17.7 Blood hematocrit (volume fraction) 39 % 40-54 Automated erythrocyte mean corpuscular volume 87 [foz_us] 80-99 Automated erythrocyte mean corpuscular hemoglobin (mass per erythrocyte) 30 pg 25-34 Automated erythrocyte mean corpuscular hemoglobin concentration measurement ( mass/volume) 35 g/dL 32-36 Automated erythrocyte distribution width ratio 13.4 % 10.0-14.5 Automated blood platelet count (count/volume) 151 10*3/uL 130-400 Automated blood platelet mean volume measurement 9.9 [foz_us] 7.4-10.4 Automated blood neutrophils/100 leukocytes 50 % 42-75 Automated blood lymphocytes/100 leukocytes 32 % 12-44 Blood monocytes/100 leukocytes 13 % 0-12 Automated blood eosinophils/100 leukocytes 4 % 0-10 Automated blood basophils/100 leukocytes 0 % 0-10 Blood neutrophils automated count (number/volume) 3.2 10*3 1.8-7.8 Blood lymphocytes automated count (number/volume) 2.0 10*3 1.0-4.0 Blood monocytes automated count (number/volume) 0.8 10*3 0.0-1.0 Automated eosinophil count 0.2 10*3/uL 0.0-0.3 Automated blood basophil count (count/volume) 0.0 10*3/uL 0.0-0.1 Comprehensive metabolic panel - 06/09/17 19:25 Serum or plasma sodium measurement (moles/volume) 134 mmol/L 135-145 Serum or plasma potassium measurement (moles/volume) 3.7 mmol/L 3.6-5.0 Serum or plasma chloride measurement (moles/volume) 98 mmol/L 98-107 Carbon dioxide 25 mmol/L 21-32 Serum or plasma anion gap determination (moles/volume) 11 mmol/L 5-14 Serum or plasma urea nitrogen measurement (mass/volume) 16 mg/dL 7-18 Serum or plasma creatinine measurement (mass/volume) 0.88 mg/dL 0.60-1.30 Serum or plasma urea nitrogen/creatinine mass ratio 18 NRG Serum or plasma creatinine measurement with calculation of estimated glomerular filtration rate > NRG Serum or plasma glucose measurement (mass/volume) 135 mg/dL 70-105 Serum or plasma calcium measurement (mass/volume) 9.5 mg/dL 8.5-10.1 Serum or plasma total bilirubin measurement (mass/volume) 0.3 mg/dL 0.1-1.0 Serum or plasma alkaline phosphatase measurement (enzymatic activity/volume) 66 U/L 40-136 Serum or plasma aspartate aminotransferase measurement (enzymatic activity/ volume) 18 U/L 5-34 Serum or plasma alanine aminotransferase measurement (enzymatic activity/volume ) 21 U/L 0-55 Serum or plasma protein measurement (mass/volume) 7.1 g/dL 6.4-8.2 Serum or plasma albumin measurement (mass/volume) 4.0 g/dL 3.2-4.5 Magnesium - 06/09/17 19:25 Magnesium 1.8 mg/dL 1.8-2.4 Serum or plasma troponin i.cardiac measurement (mass/volume) - 06/09/17 19:25 Serum or plasma troponin i.cardiac measurement (mass/volume) < ng/ mL <0.30 Serum or plasma lithium measurement (moles/volume) - 06/09/17 19:25 BNP level 43.7 pg/mL <100.0 Myoglobin, serum - 06/09/17 19:25 Myoglobin, serum 43.0 ng/mL 10.0-92.0 PT panel in platelet poor plasma by coagulation assay - 06/09/17 19:25 Prothrombin time (PT) in platelet poor plasma by coagulation assay 12.4 s 12.2-14.7 INR in platelet poor plasma or blood by coagulation assay 1.0 0.8-1.4 Activated partial thromboplastin time (aPTT) in platelet poor plasma bycoagulation assay - 06/09/17 19:25 Activated partial thromboplastin time (aPTT) in platelet poor plasma bycoagulation assay 25 s 24-35 Complete urinalysis with reflex to culture - 06/09/17 20:49 Urine color determination YELLOW NRG Urine clarity determination CLEAR NRG Urine pH measurement by test strip 6.5 5-9 Specific gravity of urine by test strip 1.015 1.016- 1.022 Urine protein assay by test strip, semi-quantitative NEGATIVE NEGATIVE Urine glucose detection by automated test strip NEGATIVE NEGATIVE Erythrocytes detection in urine sediment by light microscopy 2+ NEGATIVE Urine ketones detection by automated test strip NEGATIVE NEGATIVE Urine nitrite detection by test strip NEGATIVE NEGATIVE Urine total bilirubin detection by test strip NEGATIVE NEGATIVE Urine urobilinogen measurement by automated test strip (mass/volume) NORMAL NORMAL Urine leukocyte esterase detection by dipstick NEGATIVE NEGATIVE Automated urine sediment erythrocyte count by microscopy (number/high power field) [HPF] NRG Automated urine sediment leukocyte count by microscopy (number/high power field ) NONE NRG Bacteria detection in urine sediment by light microscopy NONE NRG Crystals detection in urine sediment by light microscopy NONE NRG Casts detection in urine sediment by light microscopy NONE NRG Mucus detection in urine sediment by light microscopy NEGATIVE NRG Complete urinalysis with reflex to culture NO NRG Serum or plasma troponin i.cardiac measurement (mass/volume) - 06/09/17 21:35 Serum or plasma troponin i.cardiac measurement (mass/volume) < ng/ mL <0.30 Complete blood count (CBC) with automated white blood cell (WBC) differential - 02/11/18 14:40 Blood leukocytes automated count (number/volume) 7.2 10*3/uL 4.3-11.0 Blood erythrocytes automated count (number/volume) 3.54 10*6/uL 4.35-5.85 Venous blood hemoglobin measurement (mass/volume) 11.3 g/dL 13.3-17.7 Blood hematocrit (volume fraction) 32 % 40-54 Automated erythrocyte mean corpuscular volume 91 [foz_us] 80-99 Automated erythrocyte mean corpuscular hemoglobin (mass per erythrocyte) 32 pg 25-34 Automated erythrocyte mean corpuscular hemoglobin concentration measurement ( mass/volume) 35 g/dL 32-36 Automated erythrocyte distribution width ratio 12.6 % 10.0-14.5 Automated blood platelet count (count/volume) 218 10*3/uL 130-400 Automated blood platelet mean volume measurement 9.0 [foz_us] 7.4-10.4 Automated blood neutrophils/100 leukocytes 65 % 42-75 Automated blood lymphocytes/100 leukocytes 18 % 12-44 Blood monocytes/100 leukocytes 12 % 0-12 Automated blood eosinophils/100 leukocytes 3 % 0-10 Automated blood basophils/100 leukocytes 1 % 0-10 Blood neutrophils automated count (number/volume) 4.7 10*3 1.8-7.8 Blood lymphocytes automated count (number/volume) 1.3 10*3 1.0-4.0 Blood monocytes automated count (number/volume) 0.9 10*3 0.0-1.0 Automated eosinophil count 0.2 10*3/uL 0.0-0.3 Automated blood basophil count (count/volume) 0.0 10*3/uL 0.0-0.1 Whole blood basic metabolic panel - 02/11/18 14:40 Serum or plasma sodium measurement (moles/volume) 136 mmol/L 135-145 Serum or plasma potassium measurement (moles/volume) 3.3 mmol/L 3.6-5.0 Serum or plasma chloride measurement (moles/volume) 99 mmol/L 98-107 Carbon dioxide 26 mmol/L 21-32 Serum or plasma anion gap determination (moles/volume) 11 mmol/L 5-14 Serum or plasma urea nitrogen measurement (mass/volume) 33 mg/dL 7-18 Serum or plasma creatinine measurement (mass/volume) 1.38 mg/dL 0.60-1.30 Serum or plasma urea nitrogen/creatinine mass ratio 24 NRG Serum or plasma creatinine measurement with calculation of estimated glomerular filtration rate 49 NRG Serum or plasma glucose measurement (mass/volume) 192 mg/dL 70-105 Serum or plasma calcium measurement (mass/volume) 9.6 mg/dL 8.5-10.1 Methicillin resistant Staphylococcus aureus (MRSA) screening culture - 14:40 Methicillin resistant Staphylococcus aureus (MRSA) screening culture NEG NRG Encounters ACCT No. Visit Date/Time Discharge Status Pt. Type Provider Facility Loc./Unit Complaint [id number] 01/13/2015 16:34:00 01/13/2015 23:59:59 CLS Outpatient GREGORIA DIALLO MD [id number] 09/30/2014 15:44:00 09/30/2014 23:59:59 CLS Outpatient KAYCEE ANAYA DO [id number] 07/08/2014 09:40:00 07/08/2014 23:59:59 CLS Outpatient GREGORIA DIALLO MD [id number] 06/17/2014 15:44:00 06/17/2014 23:59:59 CLS Outpatient GREGORIA DIALLO MD [id number] 04/27/2014 14:21:00 04/27/2014 23:59:59 CLS Outpatient GREGORIA DIALLO MD [id number] 02/16/2014 17:26:00 02/16/2014 23:59:59 CLS Outpatient GREGORIA DIALLO MD [id number] 01/04/2014 15:15:00 01/04/2014 23:59:59 CLS Outpatient GREGORIA DIALLO MD [id number] 11/19/2013 09:22:00 11/19/2013 23:59:59 CLS Outpatient GREGORIA DIALLO MD [id number] 06/09/2013 14:32:00 06/09/2013 23:59:59 CLS Outpatient GREGORIA DIALLO MD [id number] 05/21/2013 15:35:00 Document Registration [id number] 03/27/2013 09:53:00 Document Registration [id number] 01/31/2013 09:51:00 Document Registration [id number] 02/11/2018 14:17:00 02/11/2018 15:30:00 DIS Outpatient BEN SANTIAGO, DANIELLE Lange [facility] PREOP MULTIPLE FACIAL LESIONS [id number] 06/09/2017 19:24:00 06/09/2017 22:55:00 DIS Emergency ESA RHODES MD [facility] ER CHEST PAIN [id number] 07/27/2016 11:12:00 07/27/2016 14:56:00 DIS Emergency AYDEN ABDULLAHI APRN [facility] ER ABD/UPPER BACK PAIN [id number] 03/29/2016 11:31:00 03/29/2016 13:20:00 DIS Emergency LIVIA DO, MARLEN K [facility] ER CHEST PAIN [id number] 02/07/2016 07:08:00 02/07/2016 11:08:00 DIS Emergency SANDEE SANTIAGO, EZRA Armendariz [facility] ER FALL;L ARM AND HIP PAIN [id number] 02/12/2015 06:14:00 02/13/2015 14:45:00 DIS Inpatient YOEL SANTIAGO, GREGORIA Napoles [facility] CSD CHEST PAIN,BRADYCARDIA [id number] 06/19/2014 19:54:00 06/19/2014 21:09:00 DIS Emergency LIN SANTIAGO, SOLITARIO Nava [facility] ER CHEST PAIN [id number] 06/02/2014 16:08:00 06/10/2014 14:15:00 DIS Inpatient GREGORIA DIALLO MD [facility] 4TH ACUTE CVA [id number] 06/01/2014 07:35:00 06/01/2014 08:45:00 DIS Emergency LIVIA DO, MARLEN K [facility] ER CHEST PAIN [id number] 02/14/2018 07:45:00 PEN Preadmit BEN SANTIAGO, DANIELLE Lange [facility] MULTIPLE FACIAL LESIONS [id number] 12/17/2017 09:20:00 12/17/2017 23:59:59 [facility] Outpatient YOEL [facility]AG[facility]
[2018-02-14] MEDS ORDERED: LACTATED RINGERS 1,000 ML IV PRN (08:28)
[2018-02-14 08:37] VITALS: BP 146/89
[2018-02-14] MEDS ORDERED: FAMOTIDINE 20MG/2ML IV (PEPCID) ONE (08:50)
[2018-02-14] MEDS ORDERED: SEVOFLURANE (ULTANE) 15 ML INHAL SOLN ONE ×3 (08:53→11:12)
[2018-02-14] MEDS ORDERED: LIDOCAINE PF 2% 5 ML (XYLOCAINE) VIAL ONE (08:53)
[2018-02-14] MEDS ORDERED: proPOfol 200 MG/20 ML (DIPRIVAN) VIAL IV ONE (08:53)
[2018-02-14] MEDS ORDERED: fentaNYL INJECTION 100 MCG/2 ML AMP ONE (08:54)
[2018-02-14] MEDS ORDERED: FAMOTIDINE 20MG/2ML IV (PEPCID) IV ONE (09:00)
[2018-02-14] MEDS ORDERED: LIDOCAINE/EPI 1%-1:200,000 (XYLOCAINE) 10 ML VIAL ONE (09:15)
[2018-02-14] MEDS ORDERED: MUPIROCIN 2% OINT 22 GM (BACTROBAN) TUBE ONE (09:15)
--- NOTE | 2018-02-14 10:05 | Progress Note-Pre Operative ---
Pre-Operative Progress Note H&P Reviewed The H&P was reviewed, patient examined and no changes noted. Date Seen by Provider: Feb 14, 2018 Time Seen by Provider: 10:00 Date H&P Reviewed: Feb 14, 2018 Time H&P Reviewed: 10:00 Pre-Operative Diagnosis: Multiple Facial Lesions DANIELLE CONTRERAS MD Feb 14, 2018 10:05 am
[2018-02-14] MEDS ORDERED: PHENYLEPHRINE 100 MCG/ML 10 ML (ANESTHESIA) SYR ONE (10:40)
--- NOTE | 2018-02-14 11:24 | Progress Note-Post Operative ---
Post-Operative Progess Note Surgeon (s)/Ferryboat Pilot (s) Surgeon DANIELLE CONTRERAS MD Ferryboat Pilot n/a Pre-Operative Diagnosis Multiple Facial Lesions Post-Operative Diagnosis same Post-Op Procedure Note Date of Procedure: Feb 14, 2018 Name of Procedure Performed: Excision of Multiple facial lesions with INtermediate Repair Description & Findings Description and Findings: n/a Anesthesia Type gen lma Estimated Blood Loss minimal Packing none. Specimen(s) collected/removed excision of multiple facial lesions-with frozen sections DANIELLE CONTRERAS MD Feb 14, 2018 11:23 am
[2018-02-14] MEDS ORDERED: fentaNYL INJECTION 100 MCG/2 ML AMP IVP PRN (11:30)
[2018-02-14] MEDS ORDERED: ACETAMINOPHEN 325 MG TABLET/CAPLET (TYLENOL) PO PRN (11:30)
[2018-02-14 12:25] VITALS: BP 117/56
[2018-02-14 12:55] VITALS: BP 109/53
--- NOTE | 2018-02-14 13:34 | Anesthesia-General Post-Op ---
General Patient Condition Mental Status/LOC: Same as Preop Cardiovascular: Satisfactory Nausea/Vomiting: Absent Respiratory: Satisfactory Pain: Controlled Complications: Absent Post Op Complications Complications None Follow Up Care/Instructions Patient Instructions None needed. Anesthesia/Patient Condition Patient Condition Patient is doing well, no complaints, stable vital signs, no apparent adverse anesthesia problems. No complications reported per nursing. AARTI CARMONA CRNA Feb 14, 2018 13:34
[2018-02-14 13:35] VITALS: BP 109/59
[2018-02-14] MEDS ORDERED: HYDR-3812 PO (13:50)
[2018-02-14 14:30] VITALS: BP 109/59
== END 2018-02-14 14:30 | disposition home or self-care (01) ==
LOC: SDC 07:59
PROVIDERS: ATTEND Otolaryngology Otolaryngology/Facial Plastic Surgery
DX: C44.320 Squamous cell carcinoma of skin of unspecified parts of face (principal); C44.42 Squamous cell carcinoma of skin of scalp and neck; E11.9 Type 2 diabetes mellitus without complications; I10 Essential (primary) hypertension; E78.00 Pure hypercholesterolemia, unspecified; K21.9 Gastro-esophageal reflux disease without esophagitis; Z79.899 Other long term (current) drug therapy
CPT/HCPCS: 82962